=== PATIENT | female | born 1965 | race Caucasian/White ===

== ENCOUNTER → 2017-01-14 | Outpatient (CLI) | payer OTHER ==
--- NOTE | 2017-01-14 11:25 | MM ---
Reason for exam: screening (asymptomatic). Last mammogram was performed 1 year and 1 month ago. History: Patient is postmenopausal. Family history of breast cancer in mother at age 50. Benign excisional biopsy of the left breast, 2010. Physical Findings: A clinical breast exam by your physician is recommended on an annual basis and results should be correlated with mammographic findings. MG Screening Mammo w CAD Bilateral CC and MLO view(s) were taken. Prior study comparison: December 15, 2015, bilateral MG screening mammo w CAD. November 02, 2014, bilateral MG diagnostic mammo w CAD YHAIR. There are scattered fibroglandular densities. There is no discrete abnormality. No significant changes when compared with prior studies. ASSESSMENT: Negative, BI-RAD 1 RECOMMENDATION: Routine screening mammogram of both breasts in 1 year.
== END | disposition home or self-care (01) ==
LOC: RADMAMWWP 07:17
PROVIDERS: ATTEND Family Medicine
DX: Z12.31 Encounter for screening mammogram for malignant neoplasm of breast (principal)

== ENCOUNTER → 2017-01-14 | Outpatient (CLI) | payer OTHER ==
[2017-01-14 08:23] LABS: Cholesterol 247 mg/dL (<200); HDL Cholesterol 38 mg/dL (40-60); Triglycerides 445 mg/dL (<150)
== END | disposition home or self-care (01) ==
LOC: LABWHC1 07:45
PROVIDERS: ATTEND Family Medicine
DX: E11.9 Type 2 diabetes mellitus without complications (principal); E78.2 Mixed hyperlipidemia; I10 Essential (primary) hypertension; Z51.81 Encounter for therapeutic drug level monitoring; Z79.899 Other long term (current) drug therapy
CPT/HCPCS: 36415; 80061

== ENCOUNTER → 2017-08-12 | Outpatient (CLI) | payer OTHER ==
[2017-08-12 09:39] LABS: Basophils # (A) 0.1 k/uL (0-0.2); Basophils % (A) 1 %; Eosinophils # (A) 0.4 k/uL (0-0.7); Eosinophils % (A) 3 %; HCT 39.9 % (34.0-46.0); HGB 11.8 gm/dL (11.4-16.0); Hypochromasia Marked; Lymphocytes # (A) 3.5 k/uL (1.0-4.8); Lymphocytes % (A) 29 %; MCH 19.8 pg (25.0-35.0); MCHC 29.7 g/dL (31.0-37.0); MCV 66.8 fL (80.0-100.0); Mean Platelet Volume 6.7; Microcytosis Marked; Monocytes # (A) 0.7 k/uL (0-1.0); Monocytes % (A) 6 %; Neutrophils # (A) 7.3 k/uL (1.3-7.7); Neutrophils % (A) 60 %; Platelet Count 270 k/uL (150-450); RBC 5.98 m/uL (3.80-5.40); RDW 15.4 % (11.5-15.5); WBC 12.2 k/uL (3.8-10.6)
[2017-08-12 09:45] LABS: ALT 17 U/L (9-52); AST 20 U/L (14-36); Alkaline Phosphatase 83 U/L (38-126); Anion Gap 12 mmol/L; Blood Urea Nitrogen 13 mg/dL (7-17); Calcium 9.6 mg/dL (8.4-10.2); Carbon Dioxide 30 mmol/L (22-30); Chloride 101 mmol/L (98-107); Cholesterol 233 mg/dL (<200); Glucose 92 mg/dL (74-99); HDL Cholesterol 37 mg/dL (40-60); LDL Cholesterol,Calculated 117 mg/dL (0-99); Potassium 4.3 mmol/L (3.5-5.1); Sodium 143 mmol/L (137-145); Total Bilirubin 0.3 mg/dL (0.2-1.3); Total Protein 7.1 g/dL (6.3-8.2); Triglycerides 393 mg/dL (<150)
[2017-08-12 19:03] LABS: Hemoglobin A1C 6.6 % (4.0-6.0)
== END | disposition home or self-care (01) ==
LOC: LABWHC1 08:48
PROVIDERS: ATTEND Family Medicine
DX: E11.9 Type 2 diabetes mellitus without complications (principal); E78.1 Pure hyperglyceridemia; Z51.81 Encounter for therapeutic drug level monitoring; Z79.899 Other long term (current) drug therapy
CPT/HCPCS: 36415; 80053; 80061; 82043; 82570; 83036; 85025

== ENCOUNTER 2017-11-12 17:04 | Emergency (ER) | payer OTHER ==
[2017-11-12 17:27] VITALS: BP 132/63; PULSE 97; RESP 18; TEMP 98
--- NOTE | 2017-11-12 18:08 | ED ---
Extremity Problem HPI - General Chief complaint: Extremity Problem,Nontraumatic Stated complaint: Right Swollen Foot Time Seen by Provider: 11/12/17 17:54 Source: patient, RN notes reviewed Mode of arrival: ambulatory Limitations: no limitations - History of Present Illness Initial comments: This is a 52-year-old female who presents to the emergency department with chief complaint of right foot swelling. Patient states that last night she developed swelling in her right foot and ankle. She denies any specific injury or trauma but does state that she has been moving into a new house which has been strenuous. She states that she is concerned for a blood clot because she has a history of a DVT in the right leg when she was 21 years old. Patient states that she elevated her foot and the swelling went down, however today she developed pain in the right lower extremity. She states that she has pain in the foot, ankle, calf and knee. She states that she is a current, every day smoker. Denies estrogen use. Denies recent surgeries or hospitalizations. Denies fever, chills, chest pain, shortness of breath, abdominal pain, nausea or vomiting, constipation or diarrhea, dysuria or hematuria, numbness or tingling, headache or vision changes. - Related Data Home Medications Medication Instructions Recorded Confirmed ALPRAZolam [Xanax] 1 mg PO Q8HR 01/12/15 11/12/17 Carisoprodol [Soma] 350 mg PO QID 01/12/15 11/12/17 Levothyroxine Sodium [Synthroid] 100 mcg PO DAILY 01/12/15 11/12/17 Morphine Sulfate ER [Ms Contin 60 mg PO Q12HR 01/12/15 11/12/17 60Mg] oxyCODONE-APAP 10-325MG [Percocet 1 tab PO Q6HR PRN 01/12/15 11/12/17 10-325] Aspirin EC [Ecotrin] 325 mg PO DAILY PRN 11/12/17 11/12/17 Meclizine [Antivert] 25 mg PO BID PRN 11/12/17 11/12/17 Omeprazole 20 mg PO BID 11/12/17 11/12/17 Zolpidem [Ambien] 10 mg PO HS PRN 11/12/17 11/12/17 Allergies Allergy/AdvReac Type Severity Reaction Status Date / Time gabapentin [From Neurontin] Allergy Swelling Verified 11/12/17 18:16 Iodinated Contrast- Oral and Allergy Rash/Hives Verified 11/12/17 18:16 IV Dye [Iodinated Contrast Media - IV Dye] Penicillins Allergy Rash/Hives Verified 11/12/17 18:16 sulfamethoxazole Allergy Rash/Hives Verified 11/12/17 18:16 [From Bactrim] trimethoprim [From Bactrim] Allergy Rash/Hives Verified 11/12/17 18:16 Review of Systems ROS Statement: Those systems with pertinent positive or pertinent negative responses have been documented in the HPI. ROS Other: All systems not noted in ROS Statement are negative. Past Medical History Past Medical History: Diabetes Mellitus, Fibromyalgia Additional Past Medical History / Comment(s): glaucoma, TMJ, anemia, restless leg syndrome History of Any Multi-Drug Resistant Organisms: None Reported Past Surgical History: Section, Hernia Repair Additional Past Surgical History / Comment(s): peripheral iridotomy eye sx Past Psychological History: No Psychological Hx Reported Smoking Status: Current every day smoker Past Alcohol Use History: None Reported Past Drug Use History: None Reported General Exam - General Exam Comments Initial Comments: General: Awake and alert, well-developed; in no apparent distress. Sitting comfortably on ED stretcher. HEENT: Head atraumatic, normocephalic. Pupils are equal, round and reactive to light. Extraocular movements intact. Oropharynx moist without erythema or exudate. Neck: Supple. Normal ROM. Cardiovascular: Regular rate and rhythm. No murmurs, rubs or gallops. Chest symmetrical. Respiratory: Lungs clear to auscultation bilaterally. No wheezes, rales or rhonchi. Normal respiratory effort with no use of accessory muscles. Musculoskeletal: Normal range of motion of the right lower extremity. There is soft tissue swelling noted to the right foot and ankle. Tenderness along the fourth metatarsal. Tenderness on the lateral aspect of the ankle. Mild tenderness on palpation of the calf. Negative Homero's sign. Sensation is intact. Pedal pulses are 2+ equal and palpable bilaterally. Skin: Alix, warm and dry without rashes or lesions. No erythema. Neurological: Alert and oriented x3. CN II-XII grossly intact. Speech is fluent and answers are appropriate. No focal neuro deficits. Psychiatric: Normal mood and affect. No overt signs of depression or anxiety noted. Limitations: no limitations Course Vital Signs 11/12/17 17:25 Temperature 98.0 F Pulse Rate 97 Respiratory 18 Rate Blood Pressure 132/63 O2 Sat by Pulse 96 Oximetry Medical Decision Making - Medical Decision Making This is a 52-year-old female who presented to the emergency department for right lower extremity swelling and pain. Patient denies any specific injury or trauma, but states that she has been moving into a new house which has been strenuous work. She states she is concerned for a blood clot as she has had a DVT in the right lower extremity in the past. On physical examination, there is soft tissue swelling to the right foot and ankle. There is mild tenderness of the right calf and tenderness along the fifth metatarsal and lateral aspect of the ankle. X-rays of the right foot and ankle were negative for any acute abnormalities. Ultrasound venous Doppler revealed no evidence for an acute DVT. No signs of infection. Patient likely suffering from musculoskeletal strain. Findings were discussed with patient. Recommended rest, ice, elevation and ibuprofen as needed for pain and inflammation. Patient is in agreement with plan and voices understanding. She'll be discharged home at this time. All questions answered. - Radiology Data Radiology results: report reviewed X-ray right foot impression: Calcaneal spurring. No fracture seen. X-ray right ankle impression: Soft tissue swelling. No fracture. Ultrasound venous Doppler right lower extremity impression: Negative exam. No evidence of deep venous thrombosis in the right leg. Disposition Clinical Impression: Lower extremity edema Disposition: HOME SELF-CARE Condition: Good Instructions: Leg Edema (ED) Additional Instructions: Please rest, ice, elevate and take ibuprofen or Tylenol as needed. Please follow up with primary care provider within 1-2 days. Return to emergency department if symptoms should worsen or any concerns arise. Is patient prescribed a controlled substance at d/c from ED?: No Referrals: Lei Tony DO [Primary Care Provider] - 1-2 days Time of Disposition: 19:28
--- NOTE | 2017-11-12 18:45 | XR ---
EXAMINATION TYPE: XR foot complete RT DATE OF EXAM: 11/12/2017 COMPARISON: NONE HISTORY: Foot pain and swelling TECHNIQUE: 3 views FINDINGS: There is plantar calcaneal spur. The tarsals are intact. I see no fracture nor dislocation. There are no erosions. IMPRESSION: Calcaneal spurring. No fracture seen.
--- NOTE | 2017-11-12 18:46 | XR ---
EXAMINATION TYPE: XR ankle complete RT DATE OF EXAM: 11/12/2017 COMPARISON: NONE HISTORY: Ankle pain and swelling TECHNIQUE: 3 views FINDINGS: There is soft tissue swelling around the ankle joint. Ankle mortise is anatomic. I see no f racture nor dislocation. IMPRESSION: Soft tissue swelling. No fracture.
--- NOTE | 2017-11-12 19:11 | US ---
EXAMINATION TYPE: US venous doppler duplex LE RT DATE OF EXAM: 11/12/2017 7:00 PM COMPARISON: NONE CLINICAL HISTORY: Pain. Right foot pain x 2 days, history of right leg DVT 30 years ago SIDE PERFORMED: Right TECHNIQUE: The lower extremity deep venous system is examined utilizing real time linear array sonog santana with graded compression, doppler sonography and color-flow sonography. VESSELS IMAGED: External Iliac Vein (EIV) Common Femoral Vein Deep Femoral Vein Greater Saphenous Vein * Femoral Vein Popliteal Vein Small Saphenous Vein * Proximal Calf Veins (* superficial vessels) Right Leg: Appears negative for DVT IMPRESSION: Negative exam. No evidence of deep venous thrombosis in the right leg.
== END 2017-11-12 20:11 | disposition home or self-care (01) ==
LOC: EC 17:04
DX: R60.0 Localized edema (principal); M79.7 Fibromyalgia; G25.81 Restless legs syndrome; F17.200 Nicotine dependence, unspecified, uncomplicated; Z91.041 Radiographic dye allergy status; Z79.891 Long term (current) use of opiate analgesic; Z79.899 Other long term (current) drug therapy; Z88.0 Allergy status to penicillin; Z88.1 Allergy status to other antibiotic agents; Z88.2 Allergy status to sulfonamides; Z88.8 Allergy status to other drugs, medicaments and biological substances; Z86.718 Personal history of other venous thrombosis and embolism
CPT/HCPCS: 99284

== ENCOUNTER → 2018-01-21 | Outpatient (CLI) | payer OTHER ==
--- NOTE | 2018-01-23 07:56 | MM ---
Reason for exam: screening (asymptomatic). Last mammogram was performed 1 year ago. History: Patient is postmenopausal. Family history of breast cancer in mother at age 50. Benign excisional biopsy of the left breast, 2010. Physical Findings: A clinical breast exam by your physician is recommended on an annual basis and results should be correlated with mammographic findings. MG Screening Mammo w CAD Bilateral CC and MLO view(s) were taken. Prior study comparison: January 14, 2017, bilateral MG screening mammo w CAD. December 15, 2015, bilateral MG screening mammo w CAD. There are scattered fibroglandular densities. Previous mammotome biopsy in the left breast. No significant changes when compared with prior studies. ASSESSMENT: Benign, BI-RAD 2 RECOMMENDATION: Routine screening mammogram of both breasts in 1 year.
== END | disposition home or self-care (01) ==
LOC: RADMAMWWP 10:29
PROVIDERS: ATTEND Family Medicine
DX: Z12.31 Encounter for screening mammogram for malignant neoplasm of breast (principal)
CPT/HCPCS: 77067

== ENCOUNTER 2018-05-07 19:41 | Inpatient (IN) | payer BC, OTHER ==
[2018-05-07] MEDS ORDERED: SODIUM CHLORIDE 0.9% 1,000 ML IV STA ×2 (20:18→22:20)
[2018-05-07] MEDS ORDERED: MORPHINE SULFATE 2 MG/ML SYRINGE IVP STA (20:18)
[2018-05-07] MEDS ORDERED: methylPREDNISolone SOD SUCCI 125 MG/2 ML VIAL IV STA (20:20)
[2018-05-07] MEDS ORDERED: diphenhydrAMINE 50 MG/ML 1 ML VIAL IVP STA (20:20)
[2018-05-07] MEDS ORDERED: FAMOTIDINE 20 MG/2 ML VIAL IV STA (20:20)
[2018-05-07 20:48] LABS: Basophils % (A) 0 %; Eosinophils # (A) 0.2 k/uL (0-0.7); Eosinophils % (A) 1 %; HCT 31.4 % (34.0-46.0); HGB 10.1 gm/dL (11.4-16.0); Hypochromasia Slight; Lymphocytes # (A) 0.9 k/uL (1.0-4.8); Lymphocytes % (A) 5 %; MCHC 32.1 g/dL (31.0-37.0); MCV 62.4 fL (80.0-100.0); Mean Platelet Volume 7.2; Microcytosis Marked; Monocytes # (A) 1.2 k/uL (0-1.0); Monocytes % (A) 7 %; Neutrophils # (A) 15.2 k/uL (1.3-7.7); Neutrophils % (A) 86 %; Platelet Count 223 k/uL (150-450); RBC 5.03 m/uL (3.80-5.40); RDW 14.7 % (11.5-15.5); WBC 17.7 k/uL (3.8-10.6)
[2018-05-07 20:55] LABS: ALT 23 U/L (9-52); AST 23 U/L (14-36); Albumin 3.5 g/dL (3.5-5.0); Alkaline Phosphatase 156 U/L (38-126); Amylase 32 U/L (30-110); Anion Gap 8 mmol/L; Blood Urea Nitrogen 16 mg/dL (7-17); Calcium 8.9 mg/dL (8.4-10.2); Carbon Dioxide 30 mmol/L (22-30); Chloride 102 mmol/L (98-107); Glucose 118 mg/dL (74-99); Lipase 50 U/L (23-300); Sodium 140 mmol/L (137-145); Total Bilirubin 0.7 mg/dL (0.2-1.3); Total Protein 6.6 g/dL (6.3-8.2)
[2018-05-07 21:12] LABS: Appearance,Urine Cloudy (Clear); Bacteria,Urine Rare /hpf; Bilirubin,Urine Negative (Negative); Blood,Urine Moderate (Negative); Color,Urine Yellow; Glucose,Urine (UA) Negative (Negative); Ketones,Urine 1+ (Negative); Leukocyte Esterase,Urine Moderate (Negative); Mucus,Urine Few /hpf; Nitrite,Urine Negative (Negative); Protein,Urine 2+ (Negative); RBC,Urine 15 /hpf (0-5); Specific Gravity,Urine 1.019 (1.001-1.035); Squamous Epithelial Cell,Urine <1 /hpf (0-4)
--- NOTE | 2018-05-07 21:54 | CT ---
EXAMINATION TYPE: CT abdomen pelvis w con DATE OF EXAM: 05/07/2018 COMPARISON: None HISTORY: right sided abdominal pain CT DLP: 558.6 mGycm Automated exposure control for dose reduction was used. TECHNIQUE: Helical acquisition of images was performed from the lung bases through the pelvis. CONTRAST: Performed without Oral Contrast and with IV Contrast, patient injected with 100 mL of Isovue 300. FINDINGS: Lung bases are clear. There is no pleural effusion. Heart size is top normal. There is no pericardial effusion. There are small hiatal hernia. The remainder of the stomach appears normal. Liver shows no focal defect. There is no evidence of a splenic mass. There is no pancreatic mass. There is a dilated gallbladder with significant wall thickening. Gallbladder measures 5.5 cm. The wal l thickness is up to 10 mm. There is no ascites. There is minimal fluid and fat stranding in the right paracolic gutter. There is no adrenal mass. Kidneys show satisfactory contrast opacification. There is no hydronephrosi s. Ureters are not dilated. There is no retroperitoneal adenopathy. There is tiny amount of free flui d in the pelvis. There is no inguinal hernia. Appendix is not definitely seen. There is no sign of ap pendicitis. I see no evidence of a bowel obstruction. There is no intestinal wall thickening. There i s no mesenteric edema or adenopathy. The bony structures are intact. Uterus is anteverted. IMPRESSION: DILATED GALLBLADDER WITH MARKED WALL THICKENING. THERE IS SOME FLUID IN THE RIGHT UPPER QUADRANT. FIN DINGS ARE CONSISTENT WITH ACUTE CHOLECYSTITIS. NO DILATED DUCTS.
--- NOTE | 2018-05-07 22:02 | ED ---
General Adult HPI <Chris Longo - Last Filed: 05/07/18 23:11> - General Source: patient, RN notes reviewed, old records reviewed Mode of arrival: ambulatory Limitations: no limitations <Ash Escamilla - Last Filed: 05/07/18 23:55> - General Chief complaint: Abdominal Pain Stated complaint: Abd Pain - History of Present Illness Initial comments: 52-year-old female patient with a past medical history of diabetes mellitus presents to ED with right lower quadrant pain. Patient states that she has been experiencing right lower quadrant pain which radiates to her posterior axillary line for approximately 3 days. Patient describes the pain as a waxing and waning achy, intermittent stabs in the right lower quadrant which radiated to the posterior axillary line. Patient has additional complaints of fever/ chills, dysuria, nausea without emesis. Patient denies chest pain, heart palpitations, shortness of breath, pleuritic chest pain. Systemic: Pt denies fatigue, myalgia, rash. Pt denies weakness, night sweats, weight loss. Neuro: Pt denies headache, visual disturbances, syncope or pre-syncope. HEENT: Pt denies ocular discharge or irritation, otalgia, rhinorrhea, pharyngitis or notable lymphadenopathy. Cardiopulmonary: Pt denies chest pain, SOB, heart palpitations, dyspnea on exertion. : Pt denies new onset urinary or bowel incontinence. MSK: Pt denies myalgia, loss of strength or function in extremities. (Ash Escamilla) - Related Data Home Medications Medication Instructions Recorded Confirmed ALPRAZolam [Xanax] 1 mg PO QID PRN 01/12/15 05/07/18 Carisoprodol [Soma] 350 mg PO QID 01/12/15 05/07/18 Levothyroxine Sodium [Synthroid] 100 mcg PO DAILY 01/12/15 11/12/17 Morphine Sulfate ER [Ms Contin 60 mg PO Q12HR 01/12/15 05/07/18 60Mg] oxyCODONE-APAP 10-325MG [Percocet 1 tab PO Q4H PRN 01/12/15 05/07/18 10-325] Aspirin EC [Ecotrin] 325 mg PO DAILY PRN 11/12/17 05/07/18 Meclizine [Antivert] 25 mg PO BID PRN 11/12/17 05/07/18 Omeprazole 20 mg PO BID 11/12/17 11/12/17 Zolpidem [Ambien] 10 mg PO HS PRN 11/12/17 05/07/18 Carboxymethylcellulose Sodium 1 drop BOTH EYES DAILY PRN 05/07/18 05/07/18 [Refresh Tears] Allergies Allergy/AdvReac Type Severity Reaction Status Date / Time gabapentin [From Neurontin] Allergy Swelling Verified 05/07/18 20:44 Iodinated Contrast- Oral and Allergy Rash/Hives Verified 05/07/18 20:44 IV Dye [Iodinated Contrast Media - IV Dye] Penicillins Allergy Rash/Hives Verified 05/07/18 20:44 sulfamethoxazole Allergy Rash/Hives Verified 05/07/18 20:44 [From Bactrim] trimethoprim [From Bactrim] Allergy Rash/Hives Verified 05/07/18 20:44 Review of Systems ROS Other: All systems not noted in ROS Statement are negative. <Chris Longo - Last Filed: 05/07/18 23:11> ROS Other: All systems not noted in ROS Statement are negative. <Ash Escamilla - Last Filed: 05/07/18 23:55> ROS Statement: Those systems with pertinent positive or pertinent negative responses have been documented in the HPI. Past Medical History Past Medical History: Diabetes Mellitus, Fibromyalgia Additional Past Medical History / Comment(s): glaucoma, TMJ, anemia, restless leg syndrome History of Any Multi-Drug Resistant Organisms: None Reported Past Surgical History: Section, Hernia Repair Additional Past Surgical History / Comment(s): peripheral iridotomy eye sx Past Psychological History: No Psychological Hx Reported Smoking Status: Current every day smoker Past Alcohol Use History: None Reported Past Drug Use History: None Reported <Ash Escamilla - Last Filed: 05/07/18 23:55> General Exam <Chris Longo - Last Filed: 05/07/18 23:11> Limitations: no limitations <Ash Escamilla - Last Filed: 05/07/18 23:55> - General Exam Comments Initial Comments: Constitutional: NAD, AOX3. HEENT: NC/AT, trachea midline, neck supple, no lymphadenopathy. Posterior pharynx non erythematous, without exudates. External ears appear normal, without discharge. Mucous membranes moist. Eyes PERRLA, EOM intact. There is no scleral icterus. No pallor noted. Cardiopulmonary: RRR, no murmurs, rubs or gallops, no JVD noted. Lungs CTAB in anterior and posterior zaidi. No peripheral edema. Abdominal exam: Patient guarding. Abdomen diffusely tender in all quadrants. Patient has exquisite tenderness in right lower quadrant, right upper quadrant. Torres's sign positive. No ecchymoses. No Cullens or [place] Med[place] sign. Bowel sounds active in LLQ. No hepatosplenomegaly. Neuro: CN II-XII grossly intact. (Ash Escamilla) Course <Chris Longo - Last Filed: 05/07/18 23:11> <Ash Escamilla - Last Filed: 05/07/18 23:55> Vital Signs 05/07/18 05/07/18 05/07/18 19:54 22:01 23:12 Temperature 99.4 F 99.2 F 101.9 F H Pulse Rate 102 H 72 72 Respiratory 20 16 16 Rate Blood Pressure 117/73 111/73 112/55 O2 Sat by Pulse 94 L 95 93 L Oximetry - Reevaluation(s) Reevaluation #1: 05/07/18 23:11 Patient reevaluated by myself, Dr. Longo. Patient does have moderate tenderness right upper quadrant. Patient updated on results and plan. Case was discussed in detail with Dr. Davila, who will admit. He recommends antibiotics and keeping patient nothing by mouth. I did review and agree with PA findings. This includes all diagnostic interpretations and plan. (Chris Longo ) Medical Decision Making - Lab Data Result diagrams: 05/07/18 20:38 05/07/18 20:38 <Chris Longo - Last Filed: 05/07/18 23:11> - Lab Data Result diagrams: 05/07/18 20:38 05/07/18 20:38 - EKG Data -: EKG Interpreted by Me <Ash Escamilla - Last Filed: 05/07/18 23:55> - Medical Decision Making 52-year-old female patient with a past medical history of diabetes mellitus to ED with right lower quadrant pain. Patient states that she has been experiencing right lower quadrant pain which radiates to her posterior axillary line for approximately 3 days. Patient has additional complaints of fever/ chills, dysuria, nausea without emesis. Patient denies chest pain, heart palpitations, shortness of breath, pleuritic chest pain. Patient physical exam was suspicious for acute abdomen. Patient had guarding, diffuse tenderness to palpation in all quadrants, exquisite tenderness in the patient and right lower quadrant/right upper quadrant. Torres sign positive. No ecchymoses on abdomen. Patient had no cardiac complaints physical exam displayed regular rate and rhythm, no murmurs rubs or gallops. Laboratory exams were conducted including CBCwhich displayed leukocytosis of 17, Hb of 10.1. CMP which displayed mild hypokalemia, 3.0. CMP also displayed elevated alk phos 150. UA displayed 15 RBC and 12 WBC. LActic acid was negative. Blood cultures were obtained. Amylase/lipase were negative. EKG displayed normal sinus rhythm, some lateral T-wave inversions. Troponin ordered which was negative. Patient did not have any chest pain, heart palpitations. Imaging modalities of a CT abdomen and pelvis with contrast and a chest x-ray ordered. The chest x-ray did not display any acute process. The CT displayed cholecystitis. The patient was began on IV antibiotics, maintenance fluids. Patient previously received 1 L fluid bolus. Patient to be admitted to Dr. Feliz. Case discussed with Dr. Longo. Sepsis diagnosed at 11:20pm. (Ash Escamilla) - Lab Data Lab Results 05/07/18 05/07/18 05/07/18 Range/Units 20:38 20:38 20:38 WBC 17.7 H (3.8-10.6) k/uL RBC 5.03 (3.80-5.40) m/uL Hgb 10.1 L (11.4-16.0) gm/dL Hct 31.4 L (34.0-46.0) % MCV 62.4 L (80.0-100.0) fL MCH 20.0 L (25.0-35.0) pg MCHC 32.1 (31.0-37.0) g/dL RDW 14.7 (11.5-15.5) % Plt Count 223 (150-450) k/uL Neutrophils % 86 % Lymphocytes % 5 % Monocytes % 7 % Eosinophils % 1 % Basophils % 0 % Neutrophils # 15.2 H (1.3-7.7) k/uL Lymphocytes # 0.9 L (1.0-4.8) k/uL Monocytes # 1.2 H (0-1.0) k/uL Eosinophils # 0.2 (0-0.7) k/uL Basophils # 0.0 (0-0.2) k/uL Hypochromasia Slight Microcytosis Marked Sodium 140 (137-145) mmol/L Potassium 3.0 L (3.5-5.1) mmol/L Chloride 102 (98-107) mmol/L Carbon Dioxide 30 (22-30) mmol/L Anion Gap 8 mmol/L BUN 16 (7-17) mg/dL Creatinine 0.44 L (0.52-1.04) mg/dL Est GFR (CKD-EPI)AfAm >90 (>60 ml/min/1.73 sqM) Est GFR (CKD-EPI)NonAf >90 (>60 ml/min/1.73 sqM) Glucose 118 H (74-99) mg/dL Plasma Lactic Acid Adarsh 1.2 (0.7-2.0) mmol/L Calcium 8.9 (8.4-10.2) mg/dL Total Bilirubin 0.7 (0.2-1.3) mg/dL AST 23 (14-36) U/L ALT 23 (9-52) U/L Alkaline Phosphatase 156 H (38-126) U/L Troponin I (0.000-0.034) ng/mL Total Protein 6.6 (6.3-8.2) g/dL Albumin 3.5 (3.5-5.0) g/dL Amylase 32 (30-110) U/L Lipase 50 (23-300) U/L Urine Color Urine Appearance (Clear) Urine pH (5.0-8.0) Ur Specific [place] (1.001-1.035) Urine Protein (Negative) Urine Glucose (UA) (Negative) Urine Ketones (Negative) Urine Blood (Negative) Urine Nitrite (Negative) Urine Bilirubin (Negative) Urine Urobilinogen (<2.0) mg/dL Ur Leukocyte Esterase (Negative) Urine RBC (0-5) /hpf Urine WBC (0-5) /hpf Ur Squamous Epith Cells (0-4) /hpf Urine Bacteria (None) /hpf Urine Mucus (None) /hpf Urine HCG, Qual (Not Detectd) 05/07/18 05/07/18 05/07/18 Range/Units 20:55 20:55 21:30 WBC (3.8-10.6) k/uL RBC (3.80-5.40) m/uL Hgb (11.4-16.0) gm/dL Hct (34.0-46.0) % MCV (80.0-100.0) fL MCH (25.0-35.0) pg MCHC (31.0-37.0) g/dL RDW (11.5-15.5) % Plt Count (150-450) k/uL Neutrophils % % Lymphocytes % % Monocytes % % Eosinophils % % Basophils % % Neutrophils # (1.3-7.7) k/uL Lymphocytes # (1.0-4.8) k/uL Monocytes # (0-1.0) k/uL Eosinophils # (0-0.7) k/uL Basophils # (0-0.2) k/uL Hypochromasia Microcytosis Sodium (137-145) mmol/L Potassium (3.5-5.1) mmol/L Chloride (98-107) mmol/L Carbon Dioxide (22-30) mmol/L Anion Gap mmol/L BUN (7-17) mg/dL Creatinine (0.52-1.04) mg/dL Est GFR (CKD-EPI)AfAm (>60 ml/min/1.73 sqM) Est GFR (CKD-EPI)NonAf (>60 ml/min/1.73 sqM) Glucose (74-99) mg/dL Plasma Lactic Acid [place] (0.7-2.0) mmol/L Calcium (8.4-10.2) mg/dL Total Bilirubin (0.2-1.3) mg/dL AST (14-36) U/L ALT (9-52) U/L Alkaline Phosphatase (38-126) U/L Troponin I <0.012 (0.000-0.034) ng/mL Total Protein (6.3-8.2) g/dL Albumin (3.5-5.0) g/dL Amylase (30-110) U/L Lipase (23-300) U/L Urine Color Yellow Urine Appearance Cloudy H (Clear) Urine pH 6.0 (5.0-8.0) Ur Specific [place] 1.019 (1.001-1.035) Urine Protein 2+ H (Negative) Urine Glucose (UA) Negative (Negative) Urine Ketones 1+ H (Negative) Urine Blood Moderate H (Negative) Urine Nitrite Negative (Negative) Urine Bilirubin Negative (Negative) Urine Urobilinogen 4.0 (<2.0) mg/dL Ur Leukocyte Esterase Moderate H (Negative) Urine RBC 15 H (0-5) /hpf Urine WBC 12 H (0-5) /hpf Ur Squamous Epith Cells <1 (0-4) /hpf Urine Bacteria Rare H (None) /hpf Urine Mucus Few H (None) /hpf Urine HCG, Qual Not Detected (Not Detectd) - EKG Data EKG Comments: Normal sinus rhythm. Some inverted T waves in lateral leads. Ventricular rate 80 bpm, HI interval 134, QRS 90, QT/QTC 372/437. No old EKG for comparison. No complaint of chest pain, shortness of breath, troponin negative. (Ash Escamilla) Disposition <Chris Longo - Last Filed: 05/07/18 23:11> Decision Date: 05/07/18 <Ash Escamilla - Last Filed: 05/07/18 23:55> Clinical Impression: Cholecystitis, acute, Sepsis Disposition: ADMITTED IP TO THIS HOSP Condition: Good Referrals: Lei Tony DO [Primary Care Provider] - 1-2 days
[2018-05-07] MEDS ORDERED: NALOXONE 0.4 MG/ML 1 ML VIAL IV PRN (22:07)
--- NOTE | 2018-05-07 22:08 | XR ---
EXAMINATION TYPE: XR chest 2V DATE OF EXAM: 05/07/2018 COMPARISON: NONE HISTORY: Chest pain TECHNIQUE: Frontal and lateral views of the chest are obtained. FINDINGS: There is no heart failure nor confluent pneumonic infiltrate. Costophrenic angles are luz r. There are no hilar masses. Bony thorax is intact. IMPRESSION: No active cardiopulmonary disease. Normal heart.
[2018-05-07] MEDS ORDERED: LEVOFLOXACIN 750MG-D5W PMX 750 MG in DEXTROSE/WATER 1 150ML.BAG IVPB STA (23:21)
[2018-05-07] MEDS: ACETAMINOPHEN TAB 500 MG TAB PO PRN (23:49)
[2018-05-08] MEDS ORDERED: PIPERACILLIN-TAZOBACTAM 3.375 GM in SODIUM CHLORIDE 0.9% 100 ML IVPB SCH ×2
[2018-05-08] MEDS ORDERED: metroNIDAZOLE-NS PMX 500 MG in SALINE 1 100ML.BAG IVPB ONE
[2018-05-08] MEDS: MORPHINE SULFATE 2 MG/ML SYRINGE IVP PRN ×2 (04:31→10:34)
[2018-05-08] MEDS: metroNIDAZOLE-NS PMX 500 MG in SALINE 1 100ML.BAG IVPB SCH ×3 (07:53→23:35)
[2018-05-08] MEDS: PANTOPRAZOLE 40 MG/10 ML VIAL IVP SCH (12:00)
[2018-05-08] MEDS ORDERED: IV FLUID CONTINUATION 1,000 ML IV ONE (12:02)
--- NOTE | 2018-05-08 12:03 | P.GSHP ---
History of Present Illness H&P Date: 05/08/18 Chief Complaint: Right upper quadrant pain This is a 52-year-old female who was admitted through the emergency room with complaints of right quadrant pain. Patient's workup found evidence of cholelithiasis and cholecystitis. Past Medical History Past Medical History: Diabetes Mellitus, Fibromyalgia Additional Past Medical History / Comment(s): glaucoma, TMJ, anemia, restless leg syndrome History of Any Multi-Drug Resistant Organisms: None Reported Past Surgical History: Section, Hernia Repair Additional Past Surgical History / Comment(s): peripheral iridotomy eye sx, c section x2 Past Anesthesia/Blood Transfusion Reactions: No Reported Reaction Past Psychological History: No Psychological Hx Reported Smoking Status: Former smoker Past Alcohol Use History: None Reported Past Drug Use History: None Reported - Past Family History Mother Family Medical History: Cancer Additional Family Medical History / Comment(s): breast and uterine cancer recently Father Family Medical History: Myocardial Infarction ([place]) Additional Family Medical History / Comment(s): Heart problems Medications and Allergies Home Medications Medication Instructions Recorded Confirmed Type ALPRAZolam [Xanax] 1 mg PO QID PRN 01/12/15 05/07/18 History Carisoprodol [Soma] 350 mg PO QID 01/12/15 05/07/18 History Levothyroxine Sodium [Synthroid] 100 mcg PO DAILY 01/12/15 05/08/18 History Morphine Sulfate ER [Ms Contin 60 mg PO Q12HR 01/12/15 05/07/18 History 60Mg] oxyCODONE-APAP 10-325MG [Percocet 1 tab PO Q4H PRN 01/12/15 05/07/18 History 10-325] Aspirin EC [Ecotrin] 325 mg PO DAILY PRN 11/12/17 05/07/18 History Meclizine [Antivert] 25 mg PO BID PRN 11/12/17 05/07/18 History Omeprazole 20 mg PO BID 11/12/17 05/08/18 History Zolpidem [Ambien] 10 mg PO HS PRN 11/12/17 05/07/18 History Carboxymethylcellulose Sodium 1 drop BOTH EYES DAILY PRN 05/07/18 05/07/18 History [Refresh Tears] Allergies Allergy/AdvReac Type Severity Reaction Status Date / Time gabapentin [From Neurontin] Allergy Swelling Verified 05/08/18 00:33 Iodinated Contrast- Oral and Allergy Rash/Hives Verified 05/08/18 00:33 IV Dye [Iodinated Contrast Media - IV Dye] Penicillins Allergy Rash/Hives Verified 05/08/18 00:33 sulfamethoxazole Allergy Rash/Hives Verified 05/08/18 00:33 [From Bactrim] trimethoprim [From Bactrim] Allergy Rash/Hives Verified 05/08/18 00:33 walnut Allergy Anaphylaxis Verified 05/08/18 00:34 Surgical - Exam Vital Signs Temp Pulse Resp BP Pulse Ox 99.4 F 102 H 20 117/73 94 L 05/07/18 19:54 05/07/18 19:54 05/07/18 19:54 05/07/18 19:54 05/07/18 19:54 - General well developed, no distress - Eyes PERRL - ENT normal pinna - Neck no masses - Respiratory normal expansion - Cardiovascular Rhythm: regular - Abdomen Tender right upper quadrant Results - Labs 05/07/18 20:38 05/07/18 20:38 Abnormal Lab Results - Last 24 Hours (Table) 05/07/18 05/07/18 05/07/18 Range/Units 20:38 20:38 20:55 WBC 17.7 H (3.8-10.6) k/uL Hgb 10.1 L (11.4-16.0) gm/dL Hct 31.4 L (34.0-46.0) % MCV 62.4 L (80.0-100.0) fL MCH 20.0 L (25.0-35.0) pg Neutrophils # 15.2 H (1.3-7.7) k/uL Lymphocytes # 0.9 L (1.0-4.8) k/uL Monocytes # 1.2 H (0-1.0) k/uL Potassium 3.0 L (3.5-5.1) mmol/L Creatinine 0.44 L (0.52-1.04) mg/dL Glucose 118 H (74-99) mg/dL Alkaline Phosphatase 156 H (38-126) U/L Urine Appearance Cloudy H (Clear) Urine Protein 2+ H (Negative) Urine Ketones 1+ H (Negative) Urine Blood Moderate H (Negative) Ur Leukocyte Esterase Moderate H (Negative) Urine RBC 15 H (0-5) /hpf Urine WBC 12 H (0-5) /hpf Urine Bacteria Rare H (None) /hpf Urine Mucus Few H (None) /hpf Microbiology - Last 24 Hours (Table) 05/07/18 20:55 Urine Culture - Preliminary Urine,Voided Diabetes panel 05/07/18 Range/Units 20:38 Sodium 140 (137-145) mmol/L Potassium 3.0 L (3.5-5.1) mmol/L Chloride 102 (98-107) mmol/L Carbon Dioxide 30 (22-30) mmol/L BUN 16 (7-17) mg/dL Creatinine 0.44 L (0.52-1.04) mg/dL Glucose 118 H (74-99) mg/dL Calcium 8.9 (8.4-10.2) mg/dL AST 23 (14-36) U/L ALT 23 (9-52) U/L Alkaline Phosphatase 156 H (38-126) U/L Total Protein 6.6 (6.3-8.2) g/dL Albumin 3.5 (3.5-5.0) g/dL Calcium panel 05/07/18 Range/Units 20:38 Calcium 8.9 (8.4-10.2) mg/dL Albumin 3.5 (3.5-5.0) g/dL Pituitary panel 05/07/18 Range/Units 20:38 Sodium 140 (137-145) mmol/L Potassium 3.0 L (3.5-5.1) mmol/L Chloride 102 (98-107) mmol/L Carbon Dioxide 30 (22-30) mmol/L BUN 16 (7-17) mg/dL Creatinine 0.44 L (0.52-1.04) mg/dL Glucose 118 H (74-99) mg/dL Calcium 8.9 (8.4-10.2) mg/dL Adrenal panel 05/07/18 Range/Units 20:38 Sodium 140 (137-145) mmol/L Potassium 3.0 L (3.5-5.1) mmol/L Chloride 102 (98-107) mmol/L Carbon Dioxide 30 (22-30) mmol/L BUN 16 (7-17) mg/dL Creatinine 0.44 L (0.52-1.04) mg/dL Glucose 118 H (74-99) mg/dL Calcium 8.9 (8.4-10.2) mg/dL Total Bilirubin 0.7 (0.2-1.3) mg/dL AST 23 (14-36) U/L ALT 23 (9-52) U/L Alkaline Phosphatase 156 H (38-126) U/L Total Protein 6.6 (6.3-8.2) g/dL Albumin 3.5 (3.5-5.0) g/dL Assessment and Plan Assessment: Cholelithiasis Cholecystitis We'll perform laparoscopic cholecystectomy.
[2018-05-08] MEDS ORDERED: ONDANSETRON 4 MG/2 ML VIAL IVP ONE ×2 (12:11→13:44)
[2018-05-08] MEDS ORDERED: HEPARIN SODIUM,PORCINE 5,000 UNIT/ML 1 ML VIAL SQ ONE (12:12)
[2018-05-08] MEDS ORDERED: DEXAMETHASONE SOD PHOS (MDV) 100 MG/10 ML VIAL IVP ONE (12:12)
[2018-05-08] MEDS ORDERED: ceFAZolin IN SWFI 2 GM/20 ML SYRINGE IVP STA (12:14)
[2018-05-08] MEDS ORDERED: SCOPOLAMINE 1.5MG/72HR PATCH TRANSDERM ONE (12:24)
[2018-05-08] MEDS ORDERED: PROPOFOL 10 MG/ML 20 ML VIAL IV ONE (12:28)
[2018-05-08] MEDS ORDERED: HYDROmorphone (PF) 1 MG/ML ONE (12:28)
[2018-05-08] MEDS ORDERED: NEOSTIGMINE 1 MG/ML 10 ML VIAL ONE (12:28)
[2018-05-08] MEDS ORDERED: SUCCINYLCHOLINE CHLORIDE 100 MG/5 ML SYR IV ONE (12:28)
[2018-05-08] MEDS ORDERED: GLYCOPYRROLATE 0.2 MG/ML 2 ML VIAL ONE (12:28)
[2018-05-08] MEDS ORDERED: MIDAZOLAM 2 MG/2 ML VIAL ONE (12:28)
[2018-05-08] MEDS ORDERED: LIDOCAINE 1% INJ 10MG/ML (20 ML MDV) ONE (12:28)
[2018-05-08] MEDS ORDERED: ROCURONIUM BROMIDE 10 MG/ML 10 ML VIAL IV ONE (12:28)
[2018-05-08] MEDS ORDERED: fentaNYL (PF) 50 MCG/ML 2 ML AMP ONE (12:28)
[2018-05-08] MEDS ORDERED: SODIUM CHLORIDE 0.9% 50 ML with ceFAZolin 2,000 MG IV ONE ×2 (12:38)
[2018-05-08] MEDS ORDERED: BUPIVACAIN-EPI 0.25%-1:200,000 30 ML VIAL SQ ONE (12:47)
[2018-05-08] MEDS ORDERED: LACTATED RINGERS 1,000 ML IV ONE ×2 (12:51→13:40)
[2018-05-08] MEDS ORDERED: ONDANSETRON 4 MG/2 ML VIAL IVP PRN (13:40)
[2018-05-08] MEDS ORDERED: NALOXONE 0.4 MG/ML 1 ML VIAL IV PRN (13:40)
--- NOTE | 2018-05-08 13:40 | P.OP ---
Date of Procedure: 05/08/18 Preoperative Diagnosis: Cholecystitis Postoperative Diagnosis: Cholecystitis Procedure(s) Performed: Laparoscopic cholecystectomy Anesthesia: JEFF Surgeon: Emanuel Davila Estimated Blood Loss (ml): 20 Pathology: other (Gallbladder) Condition: stable Disposition: PACU Description of Procedure: The patient was placed on the operating table. The patient received a general endotracheal tube anesthesia. The patients abdomen was prepped and draped in the usual sterile fashion. Through an infraumbilical stab incision, the fascia of the anterior abdominal wall was grasped with a pair of Kochers and then the Veress needle was placed in the peritoneal cavity. Position of the Veress needle was confirmed with positive drop test. The abdomen was then insufflated. After adequate insufflation, the 10 mm trocar was placed in the peritoneal cavity. Following this the laparoscope was placed in the peritoneal cavity. The patient was placed in the head-up, right side up position and then a 5 mm trocar was placed in the right lateral and right subcostal position under direct visualization. A 8 mm trocar was placed in the epigastric position. The gallbladder was hydropic. The gallbladder is very inflamed. The gallbladder was aspirated. The gallbladder was grasped in the fundus and infundibulum. Traction on the gallbladder was placed in the lateral and the cephalad positions. The triangle of Calot was visualized.. The cystic duct was bluntly dissected until the union of the cystic duct and common bile duct was seen. The cystic duct was then divided and sealed with the Harmonic scissors. A PDS Endoloop was then placed throughout the cystic duct stump. The cystic artery divided and sealed with the Harmonic scissors. The gallbladder was then removed from the liver bed using Harmonic scissors. The gallbladder was then extracted through the epigastric port site. Operative field was checked for any bleeding spots and Harmonic scissors was used to coagulate the liver bed. The abdomen was irrigated. The trocars were removed. The skin was closed using interrupted 3-0 Vicryl suture. Dermabond dressing were applied. The patient tolerated the procedure well.
[2018-05-08] MEDS ORDERED: HYDROmorphone 1 MG/ML 1 ML SYRINGE IVP ONE ×2 (14:02→14:08)
[2018-05-08] MEDS ORDERED: fentaNYL (PF) 50 MCG/ML 2 ML AMP IVP ONE ×2 (14:11→14:20)
[2018-05-08] MEDS: HYDROmorphone 1 MG/ML 1 ML SYRINGE IVP ONE ×2 (14:31→14:39)
[2018-05-08] MEDS ORDERED: LORazepam 2 MG/ML INJ IV ONE (14:47)
[2018-05-08 16:58] LABS: Glucose,Whole Blood 184 mg/dL (75-99)
[2018-05-08] MEDS: HYDROcodone/APAP 5-325MG 1 EACH TAB PO PRN (17:15)
[2018-05-08] MEDS: DOCUSATE 100 MG CAP PO SCH (20:35)
[2018-05-08] MEDS: HYDROmorphone 1 MG/ML 1 ML SYRINGE IVP PRN ×2 (20:35→23:36)
[2018-05-08] MEDS: LEVOFLOXACIN 750MG-D5W PMX 750 MG in DEXTROSE/WATER 1 150ML.BAG IVPB SCH (20:37)
--- NOTE | 2018-05-09 00:01 | P.CONS ---
History of Present Illness - Reason for Consult Consult date: 05/08/18 Medical management of diabetes and other medical problems - Chief Complaint Abdominal pain - History of Present Illness Patient is a 52-year-old female with a known history of fibromyalgia, diet- controlled diabetes type 2, restless leg syndrome and other multiple medical problems came to ER with complaints of right lower quadrant pain.Patient states that she has been experiencing right lower quadrant pain which radiates to her posterior axillary line for approximately 3 days. Patient describes the pain as a waxing and waning achy, intermittent stabs in the right lower quadrant which radiated to the posterior axillary line. Patient has additional complaints of fever/chills, dysuria, nausea without emesis. Patient denies chest pain, heart palpitations, shortness of breath, pleuritic chest pain. Patient says that she's been getting workup for cardiac problems. Patient did have chemical stress test and is following cardiology for that. CT of the abdomen pelvis showed dilated gallbladder with marked wall thickening. There is some fluid in the right upper quadrant. Findings are consistent with acute cholecystitis. No dilated ducts. EKG showed normal sinus rhythm. Patient is currently status post laparoscopic cholecystectomy. Review of Systems Constitutional: Patient denies any fever or chills . No generalized weakness or weight loss. Abdomen: Patient does have nausea. Right lower quadrant abdominal pain. No diarrhea. Cardiovascular: Patient denies any chest pain or short of breath no palpitations. Respiratory: patient denied any cough is from production. No shortness of breath Neurologic: Patient denied any numbness or tingling headache. Musculoskeletal: Patient denies any complaints of joint swelling or deformity. Skin: Negative Psychiatric: Negative Endocrine: No heat or cold intolerance. No recent weight gain. Genitourinary: No dysuria or hematuria. All other 14 point ROS negative except the above Past Medical History Past Medical History: Diabetes Mellitus, Fibromyalgia Additional Past Medical History / Comment(s): glaucoma, TMJ, anemia, restless leg syndrome History of Any Multi-Drug Resistant Organisms: None Reported Past Surgical History: Section, Hernia Repair Additional Past Surgical History / Comment(s): peripheral iridotomy eye sx, c section x2 Past Anesthesia/Blood Transfusion Reactions: No Reported Reaction Past Psychological History: No Psychological Hx Reported Smoking Status: Former smoker Past Alcohol Use History: None Reported Past Drug Use History: None Reported - Past Family History Mother Family Medical History: Cancer Additional Family Medical History / Comment(s): breast and uterine cancer recently Father Family Medical History: Myocardial Infarction ([place]) Additional Family Medical History / Comment(s): Heart problems Medications and Allergies Home Medications Medication Instructions Recorded Confirmed Type ALPRAZolam [Xanax] 1 mg PO QID PRN 01/12/15 05/07/18 History Carisoprodol [Soma] 350 mg PO QID 01/12/15 05/07/18 History Levothyroxine Sodium [Synthroid] 100 mcg PO DAILY 01/12/15 05/08/18 History Morphine Sulfate ER [Ms Contin 60 mg PO Q12HR 01/12/15 05/07/18 History 60Mg] oxyCODONE-APAP 10-325MG [Percocet 1 tab PO Q4H PRN 01/12/15 05/07/18 History 10-325] Aspirin EC [Ecotrin] 325 mg PO DAILY PRN 11/12/17 05/07/18 History Meclizine [Antivert] 25 mg PO BID PRN 11/12/17 05/07/18 History Omeprazole 20 mg PO BID 11/12/17 05/08/18 History Zolpidem [Ambien] 10 mg PO HS PRN 11/12/17 05/07/18 History Carboxymethylcellulose Sodium 1 drop BOTH EYES DAILY PRN 05/07/18 05/07/18 History [Refresh Tears] HYDROcodone/APAP 7.5-325MG [[place] 1 tab PO Q4H PRN 3 Days #18 tab 05/08/18 Rx 7.5-325] Allergies Allergy/AdvReac Type Severity Reaction Status Date / Time gabapentin [From Neurontin] Allergy Swelling Verified 05/08/18 00:33 Iodinated Contrast- Oral and Allergy Rash/Hives Verified 05/08/18 00:33 IV Dye [Iodinated Contrast Media - IV Dye] Penicillins Allergy Rash/Hives Verified 05/08/18 00:33 sulfamethoxazole Allergy Rash/Hives Verified 05/08/18 00:33 [From Bactrim] trimethoprim [From Bactrim] Allergy Rash/Hives Verified 05/08/18 00:33 walnut Allergy Anaphylaxis Verified 05/08/18 00:34 Physical Exam Vitals: Vital Signs Temp Pulse Pulse Pulse Resp BP BP 05/08/18 14:55 100 16 127/64 05/08/18 14:40 101 H 16 129/62 05/08/18 14:25 96 16 140/6 05/08/18 14:10 98 18 143/64 05/08/18 13:55 99 16 149/68 05/08/18 13:41 97.5 F L 100 16 132/87 05/08/18 12:04 98.1 F 80 18 124/60 05/08/18 08:00 75 16 05/08/18 07:10 98.8 F 75 16 110/72 05/08/18 00:04 99.5 F 76 106/63 05/07/18 23:12 101.9 F H 72 16 112/55 05/07/18 22:01 99.2 F 72 16 111/73 05/07/18 19:54 99.4 F 102 H 20 117/73 Pulse Ox 05/08/18 14:55 95 05/08/18 14:40 97 05/08/18 14:25 97 05/08/18 14:10 99 05/08/18 13:55 96 05/08/18 13:41 94 L 05/08/18 12:04 94 L 05/08/18 08:00 05/08/18 07:10 97 05/08/18 00:04 93 L 05/07/18 23:12 93 L 05/07/18 22:01 95 05/07/18 19:54 94 L Intake and Output 05/08/18 05/08/18 05/08/18 06:59 14:59 22:59 Intake Total 375 1200 800 Output Total 15 Balance 375 1185 800 Intake: IV 1200 800 Intake, IV Titration 375 Amount Sodium Chloride 0.9% 1, 375 000 ml @ 75 mls/hr IV . [id number] STA Rx#:[id number] Output: Estimated Blood Loss 15 Other: Voiding Method Toilet # Voids 1 PHYSICAL EXAMINATION: Patient is lying in the bed comfortably, no acute distress, awake alert and oriented.. HEENT: Normocephalic. Neck is supple. Pupils reactive. Nostrils clear. Oral cavity is moist. Ears reveal no drainage. Neck reveals no JVD, carotid bruits, or thyromegaly. CHEST EXAMINATION: Trachea is central. Symmetrical expansion. Lung zaidi clear to auscultation and percussion. CARDIAC: Normal S1, S2 with no gallops. No murmurs ABDOMEN: Soft. Soreness at the surgical site. Bowel sounds sluggish. No organomegaly. No abdominal bruits. Extremities: reveal no edema. No clubbing or cyanosis Neurologically awake, alert, oriented x3 with well-coordinated movements. No focal deficits noted Skin: No rash or skin lesions. Psychiatric: Coperative. Nonsuicidal Musculoskeletal: No joint swelling or deformity. Normal range of motion. Results CBC & Chem 7: 05/07/18 20:38 05/07/18 20:38 Labs: Abnormal Lab Results - Last 24 Hours (Table) 05/07/18 05/07/18 05/07/18 Range/Units 20:38 20:38 20:55 WBC 17.7 H (3.8-10.6) k/uL Hgb 10.1 L (11.4-16.0) gm/dL Hct 31.4 L (34.0-46.0) % MCV 62.4 L (80.0-100.0) fL MCH 20.0 L (25.0-35.0) pg Neutrophils # 15.2 H (1.3-7.7) k/uL Lymphocytes # 0.9 L (1.0-4.8) k/uL Monocytes # 1.2 H (0-1.0) k/uL Potassium 3.0 L (3.5-5.1) mmol/L Creatinine 0.44 L (0.52-1.04) mg/dL Glucose 118 H (74-99) mg/dL Alkaline Phosphatase 156 H (38-126) U/L Urine Appearance Cloudy H (Clear) Urine Protein 2+ H (Negative) Urine Ketones 1+ H (Negative) Urine Blood Moderate H (Negative) Ur Leukocyte Esterase Moderate H (Negative) Urine RBC 15 H (0-5) /hpf Urine WBC 12 H (0-5) /hpf Urine Bacteria Rare H (None) /hpf Urine Mucus Few H (None) /hpf Microbiology - Last 24 Hours (Table) 05/07/18 20:55 Urine Culture - Preliminary Urine,Voided Assessment and Plan Assessment: Acute cholecystitis. Possible sepsis. Status post Laparoscopic cholecystectomy. Strep agalactiae urinary tract infection Microcytic anemia. Rule out iron deficiency. Hypokalemia Diabetes type 2. Diet controlled at home. Fibromyalgia Glaucoma Restless leg syndrome Previous history of smoking DVT prophylaxis Plan: Patient will be continued on IV fluids. Pain medications and bowel regimen. Continue with antibiotics in the form of Levaquin and Flagyl. Replace potassium. Encourage incentive spirometry and follow up closely. Insulin sliding scale. Further recommendations based on the clinical course. Thank you for your consult. Time with Patient: Greater than 30
[2018-05-09] MEDS: HYDROcodone/APAP 5-325MG 1 EACH TAB PO PRN ×3 (01:34→14:15)
[2018-05-09] MEDS: HYDROmorphone 1 MG/ML 1 ML SYRINGE IVP PRN ×4 (04:09→16:28)
[2018-05-09 04:30] LABS: Glucose,Whole Blood 153 mg/dL (75-99)
[2018-05-09 07:12] LABS: Glucose,Whole Blood 168 mg/dL (75-99)
[2018-05-09] MEDS: PANTOPRAZOLE 40 MG/10 ML VIAL IVP SCH (07:56)
[2018-05-09] MEDS: DOCUSATE 100 MG CAP PO SCH ×2 (07:58→20:30)
[2018-05-09] MEDS: ENOXAPARIN 40 MG/0.4 ML SYRINGE SQ SCH (07:58)
[2018-05-09] MEDS: INSULIN ASPART 100 UNIT/ML 1 ML 10 ML VIAL SQ SCH ×4 (08:01→20:21)
[2018-05-09] MEDS: metroNIDAZOLE-NS PMX 500 MG in SALINE 1 100ML.BAG IVPB SCH ×3 (08:04→23:07)
[2018-05-09 08:35] LABS: ALT 26 U/L (9-52); AST 20 U/L (14-36); Albumin 2.6 g/dL (3.5-5.0); Alkaline Phosphatase 122 U/L (38-126); Anion Gap 6 mmol/L; Blood Urea Nitrogen 8 mg/dL (7-17); Calcium 8.3 mg/dL (8.4-10.2); Carbon Dioxide 31 mmol/L (22-30); Chloride 103 mmol/L (98-107); Glucose 129 mg/dL (74-99); Sodium 140 mmol/L (137-145); Total Bilirubin 0.4 mg/dL (0.2-1.3); Total Protein 5.2 g/dL (6.3-8.2)
[2018-05-09 08:44] LABS: Basophils % (A) 0 %; Eosinophils % (A) 0 %; HGB 8.7 gm/dL (11.4-16.0); Hypochromasia Moderate; Lymphocytes # (A) 0.7 k/uL (1.0-4.8); Lymphocytes % (A) 6 %; MCH 19.7 pg (25.0-35.0); MCHC 31.2 g/dL (31.0-37.0); MCV 63.2 fL (80.0-100.0); Mean Platelet Volume 6.7; Microcytosis Marked; Monocytes # (A) 0.9 k/uL (0-1.0); Monocytes % (A) 7 %; Neutrophils # (A) 11.2 k/uL (1.3-7.7); Neutrophils % (A) 85 %; Platelet Count 302 k/uL (150-450); RBC 4.42 m/uL (3.80-5.40); RDW 14.4 % (11.5-15.5); WBC 13.1 k/uL (3.8-10.6)
[2018-05-09] MEDS ORDERED: Potassium Replacement Protocol 1 EACH MISC MISCELLANE PRN (11:18)
[2018-05-09 12:13] LABS: Glucose,Whole Blood 159 mg/dL (75-99)
[2018-05-09] MEDS: POTASSIUM CHLORIDE ER 20 MEQ TAB.ER PO SCH ×2 (12:24→13:37)
[2018-05-09 15:56] VITALS: BMI 22.6
[2018-05-09] MEDS ORDERED: MECLIZINE 25 MG TAB PO PRN (16:18)
[2018-05-09] MEDS ORDERED: ZOLPIDEM 10 MG TAB PO PRN (16:18)
[2018-05-09] MEDS ORDERED: ARTIFICIAL TEARS-HYPROMELLOSE DROPS 15 ML BTL BOTH EYES PRN (16:18)
--- NOTE | 2018-05-09 16:18 | P.PN ---
Subjective Progress Note Date: 05/09/18 CHIEF COMPLAINT: Status post cholecystectomy HISTORY OF PRESENT ILLNESS: The patient is a 51-year-old female who comes in with gangrenous cholecystitis. She is status post cholecystectomy postop day 1. She reports moderate soreness including along the epigastrium and right upper quadrant as well as abdominal gas bloat. She is passing flatus. She has difficulty getting out of bed. She reports nausea. Her pain is poorly controlled. PHYSICAL EXAM: GENERAL: Well-developed in mild distress. HEENT: No sclera icterus. Extraocular movements grossly intact. Moist buccal mucosa. Head is atraumatic, normocephalic. Hears conversational speech. No nasal drainage. NECK: Supple without lymphadenopathy. CHEST: Non-labored respirations and equal bilateral excursions. CARDIOVASCULAR: Regular rate with regular rhythm. ABDOMEN: Dressing clean dry and intact. No cellulitis. Mild abdominal distention. Tender epigastric right upper quadrant. MUSCULOSKELETAL: No clubbing, cyanosis or edema. NEUROLOGIC: No focal or lateralizing signs. Cranial nerves II through XII grossly intact. PSYCH: Alert and oriented to person, place and time. SKIN: Well perfused. Good skin turgor. LABS: Reviewed ASSESSMENT: 1. Gangrenous cholecystitis PLAN: 1. IV fluid hydration 2. Adjustment of pain meds 3. Restart home meds 4. Rule out for discharge tomorrow Objective - Vital Signs Vital signs: Vital Signs Temp 98.8 F 05/09/18 14:20 Pulse 77 05/09/18 14:20 Resp 22 05/09/18 14:20 BP 145/82 05/09/18 14:20 Pulse Ox 95 05/09/18 14:20 Intake & Output 05/08/18 05/09/18 05/09/18 18:59 06:59 18:59 Intake Total 1999 1300 Output Total 15 Balance 1984 1300 Weight 59.874 kg Intake: IV 1999 Intake, IV Titration 1300 Amount Lactated Ringers 1,000 ml 1300 @ 125 mls/hr IV .Q8H ONE Rx#:[id number] Output: Estimated Blood Loss 15 Other: Voiding Method Toilet Toilet # Voids 1 6 6 - Labs CBC & Chem 7: 05/09/18 06:35 05/09/18 06:35 Labs: Abnormal Lab Results - Last 24 Hours (Table) 05/08/18 05/09/18 05/09/18 Range/Units 16:56 04:29 06:35 WBC (3.8-10.6) k/uL Hgb (11.4-16.0) gm/dL Hct (34.0-46.0) % MCV (80.0-100.0) fL MCH (25.0-35.0) pg Neutrophils # (1.3-7.7) k/uL Lymphocytes # (1.0-4.8) k/uL Potassium 3.0 L (3.5-5.1) mmol/L Carbon Dioxide 31 H (22-30) mmol/L Creatinine 0.33 L (0.52-1.04) mg/dL Glucose 129 H (74-99) mg/dL POC Glucose (mg/dL) 184 H 153 H (75-99) mg/dL Calcium 8.3 L (8.4-10.2) mg/dL Total Protein 5.2 L (6.3-8.2) g/dL Albumin 2.6 L (3.5-5.0) g/dL 05/09/18 05/09/18 05/09/18 Range/Units 06:35 07:11 11:39 WBC 13.1 H (3.8-10.6) k/uL Hgb 8.7 L (11.4-16.0) gm/dL Hct 28.0 L (34.0-46.0) % MCV 63.2 L (80.0-100.0) fL MCH 19.7 L (25.0-35.0) pg Neutrophils # 11.2 H (1.3-7.7) k/uL Lymphocytes # 0.7 L (1.0-4.8) k/uL Potassium (3.5-5.1) mmol/L Carbon Dioxide (22-30) mmol/L Creatinine (0.52-1.04) mg/dL Glucose (74-99) mg/dL POC Glucose (mg/dL) 168 H 159 H (75-99) mg/dL Calcium (8.4-10.2) mg/dL Total Protein (6.3-8.2) g/dL Albumin (3.5-5.0) g/dL Microbiology - Last 24 Hours (Table) 05/07/18 20:30 Blood Culture - Preliminary Blood No Growth after 24 hours 05/07/18 20:55 Urine Culture - Final Urine,Voided Strep agalactiae - (group b) Assessment and Plan (1) Acute gangrenous cholecystitis Current Visit: Yes Status: Acute Code(s): K81.0 - ACUTE CHOLECYSTITIS SNOMED Code(s): 86696955 (2) Postoperative pain Current Visit: Yes Status: Acute Code(s): G89.18 - OTHER ACUTE POSTPROCEDURAL PAIN SNOMED Code(s): 653125696 (3) Sepsis Current Visit: Yes Status: Acute Code(s): A41.9 - SEPSIS, UNSPECIFIED ORGANISM SNOMED Code(s): 67514766
[2018-05-09] MEDS: LEVOTHYROXINE 100 MCG TAB PO SCH (16:40)
[2018-05-09 17:27] LABS: Glucose,Whole Blood 133 mg/dL (75-99)
[2018-05-09 17:36] LABS: Iron Saturation 4.62 (12.00-45.00)
[2018-05-09 17:50] LABS: Hemoglobin A1C 6.4 % (4.0-6.0)
[2018-05-09] MEDS: PANTOPRAZOLE 40 MG TABLET PO SCH (18:41)
[2018-05-09] MEDS: 0.9% NACL WITH KCL 40 MEQ/L 1,000 ML IV SCH (18:41)
[2018-05-09] MEDS: CARISOPRODOL 350 MG TAB PO SCH (19:08)
[2018-05-09 20:02] LABS: Glucose,Whole Blood 158 mg/dL (75-99)
[2018-05-09] MEDS: LEVOFLOXACIN 750MG-D5W PMX 750 MG in DEXTROSE/WATER 1 150ML.BAG IVPB SCH (20:30)
[2018-05-09] MEDS: oxyCODONE-APAP 10-325MG 1 EACH TAB PO PRN (20:30)
[2018-05-09] MEDS: MORPHINE SULFATE ER 60 MG TABLET PO SCH (23:06)
[2018-05-10] MEDS: CARISOPRODOL 350 MG TAB PO SCH ×5 (03:40→22:33)
[2018-05-10] MEDS: oxyCODONE-APAP 10-325MG 1 EACH TAB PO PRN ×4 (03:54→22:37)
[2018-05-10] MEDS: LEVOTHYROXINE 100 MCG TAB PO SCH (07:19)
[2018-05-10 07:26] LABS: Glucose,Whole Blood 131 mg/dL (75-99)
[2018-05-10 07:50] LABS: Basophils % (A) 0 %; Eosinophils % (A) 0 %; HGB 8.2 gm/dL (11.4-16.0); Hypochromasia Slight; Lymphocytes # (A) 0.7 k/uL (1.0-4.8); Lymphocytes % (A) 7 %; MCH 19.7 pg (25.0-35.0); MCHC 31.4 g/dL (31.0-37.0); MCV 62.8 fL (80.0-100.0); Mean Platelet Volume 6.7; Microcytosis Marked; Monocytes # (A) 0.9 k/uL (0-1.0); Monocytes % (A) 8 %; Neutrophils # (A) 9.1 k/uL (1.3-7.7); Neutrophils % (A) 84 %; Platelet Count 280 k/uL (150-450); RBC 4.15 m/uL (3.80-5.40); RDW 14.6 % (11.5-15.5); WBC 10.8 k/uL (3.8-10.6)
[2018-05-10 08:03] LABS: ALT 27 U/L (9-52); AST 18 U/L (14-36); Albumin 2.4 g/dL (3.5-5.0); Alkaline Phosphatase 98 U/L (38-126); Anion Gap 5 mmol/L; Blood Urea Nitrogen 6 mg/dL (7-17); Calcium 7.8 mg/dL (8.4-10.2); Carbon Dioxide 33 mmol/L (22-30); Chloride 102 mmol/L (98-107); Glucose 109 mg/dL (74-99); Magnesium 1.4 mg/dL (1.6-2.3); Sodium 140 mmol/L (137-145); Total Bilirubin 0.4 mg/dL (0.2-1.3); Total Protein 4.8 g/dL (6.3-8.2)
[2018-05-10] MEDS: INSULIN ASPART 100 UNIT/ML 1 ML 10 ML VIAL SQ SCH ×4 (08:30→22:17)
[2018-05-10] MEDS: metroNIDAZOLE-NS PMX 500 MG in SALINE 1 100ML.BAG IVPB SCH ×3 (08:36→22:34)
[2018-05-10] MEDS: ENOXAPARIN 40 MG/0.4 ML SYRINGE SQ SCH (08:40)
[2018-05-10] MEDS: DOCUSATE 100 MG CAP PO SCH ×2 (08:40→20:55)
[2018-05-10] MEDS: MORPHINE SULFATE ER 60 MG TABLET PO SCH ×2 (08:40→20:56)
[2018-05-10] MEDS: PANTOPRAZOLE 40 MG TABLET PO SCH ×2 (09:13→17:59)
[2018-05-10] MEDS ORDERED: POTASSIUM CHLORIDE ER 20 MEQ TAB.ER PO STA ×2 (10:21→11:12)
[2018-05-10] MEDS: 0.9% NACL WITH KCL 40 MEQ/L 1,000 ML IV SCH ×2 (11:24→19:45)
[2018-05-10] MEDS: MAGNESIUM SULFATE-D5W PMX 1 GM in DEXTROSE/WATER 1 100ML.BAG IVPB SCH ×2 (11:26→13:08)
[2018-05-10 12:13] LABS: Glucose,Whole Blood 166 mg/dL (75-99)
--- NOTE | 2018-05-10 13:48 | P.PN ---
Subjective Progress Note Date: 05/10/18 CHIEF COMPLAINT: Status post cholecystectomy HISTORY OF PRESENT ILLNESS: The patient is a 52-year-old female who comes in with gangrenous cholecystitis. She is status post cholecystectomy postop day 2. Yesterday she had moderate abdominal pain including generalized nausea. She is a chronic pain patient. She was placed back on her home medications. She does feel better today. She continues to have low O2 sats pre-existing. Her incentive spirometer use is only 500 mL with goal of 1500 mL. PHYSICAL EXAM: GENERAL: Well-developed in mild distress. HEENT: No sclera icterus. Extraocular movements grossly intact. Moist buccal mucosa. Head is atraumatic, normocephalic. Hears conversational speech. No nasal drainage. NECK: Supple without lymphadenopathy. CHEST: Non-labored respirations and equal bilateral excursions. CARDIOVASCULAR: Regular rate with regular rhythm. ABDOMEN: Dressing clean dry and intact. No cellulitis. Mild abdominal distention. Nontender. MUSCULOSKELETAL: No clubbing, cyanosis or edema. NEUROLOGIC: No focal or lateralizing signs. Cranial nerves II through XII grossly intact. PSYCH: Alert and oriented to person, place and time. SKIN: Well perfused. Good skin turgor. LABS: Reviewed ASSESSMENT: 1. Gangrenous cholecystitis 2. Chronic pain syndrome PLAN: 1. Continue incentive spirometry use for likely atelectasis 2. Continue IV antibiotics for persistent leukocytosis 3. May benefit from updrafts however management per medicine. Objective - Vital Signs Vital signs: Vital Signs Temp 99.6 F 05/10/18 08:47 Pulse 86 05/10/18 08:47 Resp 22 05/10/18 08:47 BP 127/61 05/10/18 08:47 Pulse Ox 95 05/10/18 08:47 Intake & Output 05/09/18 05/10/18 05/10/18 18:59 06:59 18:59 Weight 59.874 kg Other: Voiding Method Toilet # Voids 6 1 - Labs CBC & Chem 7: 05/10/18 06:37 05/10/18 06:37 Labs: Abnormal Lab Results - Last 24 Hours (Table) 05/09/18 05/09/18 05/09/18 Range/Units 06:35 06:35 17:11 WBC (3.8-10.6) k/uL Hgb (11.4-16.0) gm/dL Hct (34.0-46.0) % MCV (80.0-100.0) fL MCH (25.0-35.0) pg Neutrophils # (1.3-7.7) k/uL Lymphocytes # (1.0-4.8) k/uL Potassium (3.5-5.1) mmol/L Carbon Dioxide (22-30) mmol/L BUN (7-17) mg/dL Creatinine (0.52-1.04) mg/dL Glucose (74-99) mg/dL POC Glucose (mg/dL) 133 H (75-99) mg/dL Hemoglobin A1c 6.4 H (4.0-6.0) % Calcium (8.4-10.2) mg/dL Magnesium (1.6-2.3) mg/dL Iron 11 L (50-170) ug/dL Iron Saturation 4.62 L (12.00-45.00) Total Protein (6.3-8.2) g/dL Albumin (3.5-5.0) g/dL 05/09/18 05/10/18 05/10/18 Range/Units 19:50 06:37 06:37 WBC 10.8 H (3.8-10.6) k/uL Hgb 8.2 L (11.4-16.0) gm/dL Hct 26.0 L (34.0-46.0) % MCV 62.8 L (80.0-100.0) fL MCH 19.7 L (25.0-35.0) pg Neutrophils # 9.1 H (1.3-7.7) k/uL Lymphocytes # 0.7 L (1.0-4.8) k/uL Potassium 3.0 L (3.5-5.1) mmol/L Carbon Dioxide 33 H (22-30) mmol/L BUN 6 L (7-17) mg/dL Creatinine 0.32 L (0.52-1.04) mg/dL Glucose 109 H (74-99) mg/dL POC Glucose (mg/dL) 158 H (75-99) mg/dL Hemoglobin A1c (4.0-6.0) % Calcium 7.8 L (8.4-10.2) mg/dL Magnesium 1.4 L (1.6-2.3) mg/dL Iron (50-170) ug/dL Iron Saturation (12.00-45.00) Total Protein 4.8 L (6.3-8.2) g/dL Albumin 2.4 L (3.5-5.0) g/dL 05/10/18 05/10/18 Range/Units 07:13 11:45 WBC (3.8-10.6) k/uL Hgb (11.4-16.0) gm/dL Hct (34.0-46.0) % MCV (80.0-100.0) fL MCH (25.0-35.0) pg Neutrophils # (1.3-7.7) k/uL Lymphocytes # (1.0-4.8) k/uL Potassium (3.5-5.1) mmol/L Carbon Dioxide (22-30) mmol/L BUN (7-17) mg/dL Creatinine (0.52-1.04) mg/dL Glucose (74-99) mg/dL POC Glucose (mg/dL) 131 H 166 H (75-99) mg/dL Hemoglobin A1c (4.0-6.0) % Calcium (8.4-10.2) mg/dL Magnesium (1.6-2.3) mg/dL Iron (50-170) ug/dL Iron Saturation (12.00-45.00) Total Protein (6.3-8.2) g/dL Albumin (3.5-5.0) g/dL Microbiology - Last 24 Hours (Table) 05/07/18 20:30 Blood Culture - Preliminary Blood No Growth after 48 hours Assessment and Plan (1) Acute gangrenous cholecystitis Current Visit: Yes Status: Acute Code(s): K81.0 - ACUTE CHOLECYSTITIS SNOMED Code(s): 32250454 (2) Postoperative pain Current Visit: Yes Status: Acute Code(s): G89.18 - OTHER ACUTE POSTPROCEDURAL PAIN SNOMED Code(s): 903229814 (3) Sepsis Current Visit: Yes Status: Acute Code(s): A41.9 - SEPSIS, UNSPECIFIED ORGANISM SNOMED Code(s): 09444830
[2018-05-10 14:30] LABS: Glucose,Whole Blood 172 mg/dL (75-99)
--- NOTE | 2018-05-10 14:55 | XR ---
EXAMINATION TYPE: XR chest 2V DATE OF EXAM: 05/10/2018 COMPARISON: None INDICATION: Short of breath smoking history TECHNIQUE: Frontal and lateral views of the chest are obtained. FINDINGS: The heart size is normal. The pulmonary vasculature is upper limits of normal. Some subtle increased lung markings may be prese nt. Pulmonary edema should be considered. Consider follow-up exam Posterior costophrenic angle blunting is present. Minimal posterior pleural effusions may be present. . IMPRESSION: 1. Early volume overload or pulmonary edema should be considered. Follow-up chest x-rays are recommen ded. 2. Small posterior pleural effusions
[2018-05-10] MEDS: ALPRAZolam 1 MG TAB PO PRN (15:46)
[2018-05-10] MEDS ORDERED: FUROSEMIDE 10 MG/ML 4 ML VIAL IV STA (16:25)
[2018-05-10] MEDS ORDERED: FUROSEMIDE 10 MG/ML 2 ML VIAL IV STA (16:25)
[2018-05-10 17:47] LABS: Glucose,Whole Blood 105 mg/dL (75-99)
[2018-05-10 20:31] LABS: Glucose,Whole Blood 130 mg/dL (75-99)
[2018-05-10] MEDS: LEVOFLOXACIN 750MG-D5W PMX 750 MG in DEXTROSE/WATER 1 150ML.BAG IVPB SCH (20:56)
--- NOTE | 2018-05-11 00:06 | P.PN ---
Subjective Progress Note Date: 05/09/18 Principal diagnosis: Acute gangrenous cholecystitis Patient is a 52-year-old female with a known history of fibromyalgia, diet- controlled diabetes type 2, restless leg syndrome and other multiple medical problems came to ER with complaints of right lower quadrant pain.Patient states that she has been experiencing right lower quadrant pain which radiates to her posterior axillary line for approximately 3 days. Patient describes the pain as a waxing and waning achy, intermittent stabs in the right lower quadrant which radiated to the posterior axillary line. Patient has additional complaints of fever/chills, dysuria, nausea without emesis. Patient denies chest pain, heart palpitations, shortness of breath, pleuritic chest pain. Patient says that she's been getting workup for cardiac problems. Patient did have chemical stress test and is following cardiology for that. CT of the abdomen pelvis showed dilated gallbladder with marked wall thickening. There is some fluid in the right upper quadrant. Findings are consistent with acute cholecystitis. No dilated ducts. EKG showed normal sinus rhythm. Patient is currently status post laparoscopic cholecystectomy. 05/09/2018 Patient is still complaining of abdominal soreness. No fever no chills. Started on Oral diet. Potassium is being replaced. No complains of chest pain or shortness of breath. Patient does have nausea. No episodes of vomiting. Current medications reviewed. Objective - Vital Signs Vital signs: Vital Signs Temp 98.8 F 05/09/18 14:20 Pulse 77 05/09/18 14:20 Resp 22 05/09/18 14:20 BP 145/82 05/09/18 14:20 Pulse Ox 95 05/09/18 14:20 Intake & Output 05/08/18 05/09/18 05/09/18 18:59 06:59 18:59 Intake Total 1999 1300 Output Total 15 Balance 1984 1300 Weight 59.874 kg Intake: IV 1999 Intake, IV Titration 1300 Amount Lactated Ringers 1,000 ml 1300 @ 125 mls/hr IV .Q8H ONE Rx#:[id number] Output: Estimated Blood Loss 15 Other: Voiding Method Toilet Toilet # Voids 1 6 6 - Exam PHYSICAL EXAMINATION: Patient is lying in the bed comfortably, no acute distress, awake alert and oriented.. HEENT: Normocephalic. Neck is supple. Pupils reactive. Nostrils clear. Oral cavity is moist. Ears reveal no drainage. Neck reveals no JVD, carotid bruits, or thyromegaly. CHEST EXAMINATION: Trachea is central. Symmetrical expansion. Lung zaidi clear to auscultation and percussion. CARDIAC: Normal S1, S2 with no gallops. No murmurs ABDOMEN: Soft. Soreness at the surgical site. Bowel sounds sluggish. No organomegaly. No abdominal bruits. Extremities: reveal no edema. No clubbing or cyanosis Neurologically awake, alert, oriented x3 with well-coordinated movements. No focal deficits noted Skin: No rash or skin lesions. Psychiatric: Coperative. Nonsuicidal Musculoskeletal: No joint swelling or deformity. Normal range of motion. - Labs CBC & Chem 7: 05/10/18 06:37 05/10/18 06:37 Labs: Abnormal Lab Results - Last 24 Hours (Table) 05/09/18 05/09/18 05/09/18 Range/Units 04:29 06:35 06:35 WBC 13.1 H (3.8-10.6) k/uL Hgb 8.7 L (11.4-16.0) gm/dL Hct 28.0 L (34.0-46.0) % MCV 63.2 L (80.0-100.0) fL MCH 19.7 L (25.0-35.0) pg Neutrophils # 11.2 H (1.3-7.7) k/uL Lymphocytes # 0.7 L (1.0-4.8) k/uL Potassium 3.0 L (3.5-5.1) mmol/L Carbon Dioxide 31 H (22-30) mmol/L Creatinine 0.33 L (0.52-1.04) mg/dL Glucose 129 H (74-99) mg/dL POC Glucose (mg/dL) 153 H (75-99) mg/dL Hemoglobin A1c (4.0-6.0) % Calcium 8.3 L (8.4-10.2) mg/dL Iron (50-170) ug/dL Iron Saturation (12.00-45.00) Total Protein 5.2 L (6.3-8.2) g/dL Albumin 2.6 L (3.5-5.0) g/dL 05/09/18 05/09/18 05/09/18 Range/Units 06:35 06:35 07:11 WBC (3.8-10.6) k/uL Hgb (11.4-16.0) gm/dL Hct (34.0-46.0) % MCV (80.0-100.0) fL MCH (25.0-35.0) pg Neutrophils # (1.3-7.7) k/uL Lymphocytes # (1.0-4.8) k/uL Potassium (3.5-5.1) mmol/L Carbon Dioxide (22-30) mmol/L Creatinine (0.52-1.04) mg/dL Glucose (74-99) mg/dL POC Glucose (mg/dL) 168 H (75-99) mg/dL Hemoglobin A1c 6.4 H (4.0-6.0) % Calcium (8.4-10.2) mg/dL Iron 11 L (50-170) ug/dL Iron Saturation 4.62 L (12.00-45.00) Total Protein (6.3-8.2) g/dL Albumin (3.5-5.0) g/dL 05/09/18 05/09/18 Range/Units 11:39 17:11 WBC (3.8-10.6) k/uL Hgb (11.4-16.0) gm/dL Hct (34.0-46.0) % MCV (80.0-100.0) fL MCH (25.0-35.0) pg Neutrophils # (1.3-7.7) k/uL Lymphocytes # (1.0-4.8) k/uL Potassium (3.5-5.1) mmol/L Carbon Dioxide (22-30) mmol/L Creatinine (0.52-1.04) mg/dL Glucose (74-99) mg/dL POC Glucose (mg/dL) 159 H 133 H (75-99) mg/dL Hemoglobin A1c (4.0-6.0) % Calcium (8.4-10.2) mg/dL Iron (50-170) ug/dL Iron Saturation (12.00-45.00) Total Protein (6.3-8.2) g/dL Albumin (3.5-5.0) g/dL Microbiology - Last 24 Hours (Table) 05/07/18 20:30 Blood Culture - Preliminary Blood No Growth after 24 hours 05/07/18 20:55 Urine Culture - Final Urine,Voided Strep agalactiae - (group b) Assessment and Plan Assessment: Acute cholecystitis. Possible sepsis. Status post Laparoscopic cholecystectomy. Strep agalactiae urinary tract infection Microcytic anemia. Rule out iron deficiency. Hypokalemia Diabetes type 2. Diet controlled at home. Fibromyalgia Glaucoma Restless leg syndrome Previous history of smoking DVT prophylaxis Plan: Patient will be continued on IV fluids. Pain medications and bowel regimen. Continue with antibiotics in the form of Levaquin and Flagyl. Replace potassium. Encourage incentive spirometry and follow up closely. Insulin sliding scale. Further recommendations based on the clinical course. Thank you for your consult.
--- NOTE | 2018-05-11 00:08 | P.PN ---
Subjective Progress Note Date: 05/10/18 Principal diagnosis: Acute gangrenous cholecystitis Patient is a 52-year-old female with a known history of fibromyalgia, diet- controlled diabetes type 2, restless leg syndrome and other multiple medical problems came to ER with complaints of right lower quadrant pain.Patient states that she has been experiencing right lower quadrant pain which radiates to her posterior axillary line for approximately 3 days. Patient describes the pain as a waxing and waning achy, intermittent stabs in the right lower quadrant which radiated to the posterior axillary line. Patient has additional complaints of fever/chills, dysuria, nausea without emesis. Patient denies chest pain, heart palpitations, shortness of breath, pleuritic chest pain. Patient says that she's been getting workup for cardiac problems. Patient did have chemical stress test and is following cardiology for that. CT of the abdomen pelvis showed dilated gallbladder with marked wall thickening. There is some fluid in the right upper quadrant. Findings are consistent with acute cholecystitis. No dilated ducts. EKG showed normal sinus rhythm. Patient is currently status post laparoscopic cholecystectomy. 05/09/2018 Patient is still complaining of abdominal soreness. No fever no chills. Started on Oral diet. Potassium is being replaced. No complains of chest pain or shortness of breath. Patient does have nausea. No episodes of vomiting. 05/10/2018 Patient says that her pain is better today. No fever no chills. Otherwise patient is short stating that 90% on room air. Chest x-ray showed bilateral small pleural effusion. Patient was given IV Lasix and fluids will be held at this time and reassess tomorrow. Potassium will be replaced per protocol. Patient was encouraged with oral diet. No chest pain. Patient does have some short of breath. No headache or dizziness or lightheadedness. Current medications reviewed. Objective - Vital Signs Vital signs: Vital Signs Temp 98.9 F 05/10/18 15:00 Pulse 88 05/10/18 15:00 Resp 20 05/10/18 15:00 BP 126/61 05/10/18 15:00 Pulse Ox 95 05/10/18 15:00 Intake & Output 05/09/18 05/10/18 05/10/18 18:59 06:59 18:59 Weight 59.874 kg Other: Voiding Method Toilet # Voids 6 1 2 - Exam PHYSICAL EXAMINATION: Patient is lying in the bed comfortably, no acute distress, awake alert and oriented.. HEENT: Normocephalic. Neck is supple. Pupils reactive. Nostrils clear. Oral cavity is moist. Ears reveal no drainage. Neck reveals no JVD, carotid bruits, or thyromegaly. CHEST EXAMINATION: Trachea is central. Symmetrical expansion. Minimal left basilar crackles. No wheezing. Nonlabored breathing.. CARDIAC: Normal S1, S2 with no gallops. No murmurs ABDOMEN: Soft. Soreness at the surgical site. Bowel sounds sluggish. No organomegaly. No abdominal bruits. Extremities: reveal no edema. No clubbing or cyanosis Neurologically awake, alert, oriented x3 with well-coordinated movements. No focal deficits noted Skin: No rash or skin lesions. Psychiatric: Coperative. Nonsuicidal Musculoskeletal: No joint swelling or deformity. Normal range of motion. - Labs CBC & Chem 7: 05/10/18 06:37 05/10/18 06:37 Labs: Abnormal Lab Results - Last 24 Hours (Table) 05/09/18 05/09/18 05/09/18 Range/Units 06:35 06:35 17:11 WBC (3.8-10.6) k/uL Hgb (11.4-16.0) gm/dL Hct (34.0-46.0) % MCV (80.0-100.0) fL MCH (25.0-35.0) pg Neutrophils # (1.3-7.7) k/uL Lymphocytes # (1.0-4.8) k/uL Potassium (3.5-5.1) mmol/L Carbon Dioxide (22-30) mmol/L BUN (7-17) mg/dL Creatinine (0.52-1.04) mg/dL Glucose (74-99) mg/dL POC Glucose (mg/dL) 133 H (75-99) mg/dL Hemoglobin A1c 6.4 H (4.0-6.0) % Calcium (8.4-10.2) mg/dL Magnesium (1.6-2.3) mg/dL Iron 11 L (50-170) ug/dL Iron Saturation 4.62 L (12.00-45.00) Total Protein (6.3-8.2) g/dL Albumin (3.5-5.0) g/dL 05/09/18 05/10/18 05/10/18 Range/Units 19:50 06:37 06:37 WBC 10.8 H (3.8-10.6) k/uL Hgb 8.2 L (11.4-16.0) gm/dL Hct 26.0 L (34.0-46.0) % MCV 62.8 L (80.0-100.0) fL MCH 19.7 L (25.0-35.0) pg Neutrophils # 9.1 H (1.3-7.7) k/uL Lymphocytes # 0.7 L (1.0-4.8) k/uL Potassium 3.0 L (3.5-5.1) mmol/L Carbon Dioxide 33 H (22-30) mmol/L BUN 6 L (7-17) mg/dL Creatinine 0.32 L (0.52-1.04) mg/dL Glucose 109 H (74-99) mg/dL POC Glucose (mg/dL) 158 H (75-99) mg/dL Hemoglobin A1c (4.0-6.0) % Calcium 7.8 L (8.4-10.2) mg/dL Magnesium 1.4 L (1.6-2.3) mg/dL Iron (50-170) ug/dL Iron Saturation (12.00-45.00) Total Protein 4.8 L (6.3-8.2) g/dL Albumin 2.4 L (3.5-5.0) g/dL 05/10/18 05/10/18 05/10/18 Range/Units 07:13 11:45 14:18 WBC (3.8-10.6) k/uL Hgb (11.4-16.0) gm/dL Hct (34.0-46.0) % MCV (80.0-100.0) fL MCH (25.0-35.0) pg Neutrophils # (1.3-7.7) k/uL Lymphocytes # (1.0-4.8) k/uL Potassium (3.5-5.1) mmol/L Carbon Dioxide (22-30) mmol/L BUN (7-17) mg/dL Creatinine (0.52-1.04) mg/dL Glucose (74-99) mg/dL POC Glucose (mg/dL) 131 H 166 H 172 H (75-99) mg/dL Hemoglobin A1c (4.0-6.0) % Calcium (8.4-10.2) mg/dL Magnesium (1.6-2.3) mg/dL Iron (50-170) ug/dL Iron Saturation (12.00-45.00) Total Protein (6.3-8.2) g/dL Albumin (3.5-5.0) g/dL Microbiology - Last 24 Hours (Table) 05/07/18 20:30 Blood Culture - Preliminary Blood No Growth after 48 hours Assessment and Plan Assessment: Acute cholecystitis. Possible sepsis. Status post Laparoscopic cholecystectomy. Strep agalactiae urinary tract infection Microcytic anemia. Rule out iron deficiency. Hypokalemia Diabetes type 2. Diet controlled at home. Fibromyalgia Glaucoma Restless leg syndrome Previous history of smoking DVT prophylaxis Plan: Patient will be continued on oral diet. Gentle hydration.. Pain medications and bowel regimen. Continue with antibiotics in the form of Levaquin and Flagyl. Replace potassium. Encourage incentive spirometry and follow up closely. Insulin sliding scale. Further recommendations based on the clinical course. Time with Patient: Greater than 30
[2018-05-11] MEDS: MAGNESIUM SULFATE-D5W PMX 1 GM in DEXTROSE/WATER 1 100ML.BAG IVPB SCH ×2 (00:52→01:56)
[2018-05-11] MEDS: ACETAMINOPHEN TAB 500 MG TAB PO PRN (01:55)
[2018-05-11] MEDS: ALPRAZolam 1 MG TAB PO PRN ×2 (01:55→12:14)
[2018-05-11] MEDS: LEVOTHYROXINE 100 MCG TAB PO SCH (05:15)
[2018-05-11] MEDS: oxyCODONE-APAP 10-325MG 1 EACH TAB PO PRN ×4 (05:18→20:40)
[2018-05-11 07:00] LABS: Glucose,Whole Blood 108 mg/dL (75-99)
[2018-05-11] MEDS: DOCUSATE 100 MG CAP PO SCH ×2 (08:36→22:20)
[2018-05-11] MEDS: PANTOPRAZOLE 40 MG TABLET PO SCH ×2 (08:36→16:20)
[2018-05-11] MEDS: metroNIDAZOLE-NS PMX 500 MG in SALINE 1 100ML.BAG IVPB SCH (08:36)
[2018-05-11] MEDS: CARISOPRODOL 350 MG TAB PO SCH ×4 (08:36→22:20)
[2018-05-11] MEDS: MORPHINE SULFATE ER 60 MG TABLET PO SCH ×2 (08:37→22:18)
[2018-05-11] MEDS: INSULIN ASPART 100 UNIT/ML 1 ML 10 ML VIAL SQ SCH ×4 (08:37→22:12)
[2018-05-11] MEDS: ENOXAPARIN 40 MG/0.4 ML SYRINGE SQ SCH (08:37)
[2018-05-11 09:31] LABS: Basophils % (A) 0 %; Eosinophils # (A) 0.3 k/uL (0-0.7); Eosinophils % (A) 2 %; HCT 28.9 % (34.0-46.0); Hypochromasia Marked; Lymphocytes % (A) 7 %; MCHC 31.2 g/dL (31.0-37.0); MCV 64.2 fL (80.0-100.0); Mean Platelet Volume 6.4; Microcytosis Marked; Monocytes # (A) 0.7 k/uL (0-1.0); Monocytes % (A) 5 %; Neutrophils # (A) 11.1 k/uL (1.3-7.7); Neutrophils % (A) 84 %; Platelet Count 347 k/uL (150-450); RDW 14.5 % (11.5-15.5); WBC 13.2 k/uL (3.8-10.6)
[2018-05-11 09:59] LABS: ALT 21 U/L (9-52); AST 16 U/L (14-36); Albumin 2.5 g/dL (3.5-5.0); Alkaline Phosphatase 93 U/L (38-126); Anion Gap 9 mmol/L; Blood Urea Nitrogen 6 mg/dL (7-17); Calcium 8.2 mg/dL (8.4-10.2); Carbon Dioxide 29 mmol/L (22-30); Chloride 103 mmol/L (98-107); Glucose 115 mg/dL (74-99); Magnesium 2.1 mg/dL (1.6-2.3); Potassium 3.7 mmol/L (3.5-5.1); Sodium 141 mmol/L (137-145); Total Bilirubin 0.3 mg/dL (0.2-1.3); Total Protein 5.1 g/dL (6.3-8.2)
[2018-05-11] MEDS ORDERED: Potassium Replacement Protocol 1 EACH MISC MISCELLANE PRN (10:59)
[2018-05-11] MEDS ORDERED: POTASSIUM CHLORIDE ER 20 MEQ TAB.ER PO SCH (11:00)
[2018-05-11 11:57] LABS: Glucose,Whole Blood 105 mg/dL (75-99)
--- NOTE | 2018-05-11 12:31 | P.PN ---
Subjective Progress Note Date: 05/11/18 52-year-old female seen sitting up in a chair. Patient is postop day 3. Patient presented with a gangrenous cholecystitis. Underwent laparoscopic cholecystectomy. Patient states tolerating a diet. Pain medication effective for pain control. Had a bowel movement. White count 13.2 this morning Objective - Vital Signs Vital signs: Vital Signs Temp 98.7 F 05/11/18 07:00 Pulse 62 05/11/18 07:00 Resp 12 05/11/18 07:00 BP 100/63 05/11/18 07:00 Pulse Ox 95 05/11/18 08:01 Intake & Output 05/10/18 05/11/18 05/11/18 18:59 06:59 18:59 Intake Total 1290 Balance 1290 Intake: Intake, IV Titration 1050 Amount 0.9% NaCl with KCl 40 Meq 1050 /l 1,000 ml @ 75 mls/hr IV .[id number] JOHANNA Rx#: [id number] Oral 240 Other: Voiding Method Toilet # Voids 2 2 - Exam Physical exam 52-year-old female sitting up in bed does not appear in any acute distress states pain medication effective for pain control Lungs adequate air movement bilaterally able to use I-S achieving a 1000 for shortness of breath heart S1-S2 audible regular abdomen soft surgical tenderness appropriate surgical dressings dry no nausea no vomiting tolerating diet no stool No edema noted to the extremity - Labs CBC & Chem 7: 05/11/18 08:46 05/11/18 08:46 Labs: Abnormal Lab Results - Last 24 Hours (Table) 05/10/18 05/10/18 05/10/18 Range/Units 14:18 17:32 20:19 WBC (3.8-10.6) k/uL Hgb (11.4-16.0) gm/dL Hct (34.0-46.0) % MCV (80.0-100.0) fL MCH (25.0-35.0) pg Neutrophils # (1.3-7.7) k/uL BUN (7-17) mg/dL Creatinine (0.52-1.04) mg/dL Glucose (74-99) mg/dL POC Glucose (mg/dL) 172 H 105 H 130 H (75-99) mg/dL Calcium (8.4-10.2) mg/dL Total Protein (6.3-8.2) g/dL Albumin (3.5-5.0) g/dL 05/11/18 05/11/18 05/11/18 Range/Units 06:43 08:46 08:46 WBC 13.2 H (3.8-10.6) k/uL Hgb 9.0 L (11.4-16.0) gm/dL Hct 28.9 L (34.0-46.0) % MCV 64.2 L (80.0-100.0) fL MCH 20.0 L (25.0-35.0) pg Neutrophils # 11.1 H (1.3-7.7) k/uL BUN 6 L (7-17) mg/dL Creatinine 0.39 L (0.52-1.04) mg/dL Glucose 115 H (74-99) mg/dL POC Glucose (mg/dL) 108 H (75-99) mg/dL Calcium 8.2 L (8.4-10.2) mg/dL Total Protein 5.1 L (6.3-8.2) g/dL Albumin 2.5 L (3.5-5.0) g/dL 05/11/18 Range/Units 11:39 WBC (3.8-10.6) k/uL Hgb (11.4-16.0) gm/dL Hct (34.0-46.0) % MCV (80.0-100.0) fL MCH (25.0-35.0) pg Neutrophils # (1.3-7.7) k/uL BUN (7-17) mg/dL Creatinine (0.52-1.04) mg/dL Glucose (74-99) mg/dL POC Glucose (mg/dL) 105 H (75-99) mg/dL Calcium (8.4-10.2) mg/dL Total Protein (6.3-8.2) g/dL Albumin (3.5-5.0) g/dL Microbiology - Last 24 Hours (Table) 05/07/18 20:30 Blood Culture - Preliminary Blood No Growth after 72 hours Assessment and Plan Assessment: Impression Present on admission right upper quadrant pain suspect due to cholelithiasis and cholecystitis Postop April 07 laparoscopic cholecystectomy for acute cholelithiasis and cholecystitis Leukocytosis Strep agalactiae urinary tract infection on IV Levaquin and Flagyl Microcytic anemia. Rule out iron deficiency. Hypokalemia Diabetes type 2. Diet controlled at home. Plan Continue postop surgical care Recommendations by medicine for IV antibiotics Pain control Increase activity Anticipate discharge within the next 24 to 48 hours DVT and GI prophylaxis The above impression and plan of care have been discussed and directed by signing physician. Ermelinda Sharp nurse practitioner acting as scribe for signing physician.
--- NOTE | 2018-05-11 16:02 | P.PN ---
Subjective Progress Note Date: 05/11/18 Progress note being dictated for Dr. Dee. Interval history:Patient is a 52-year-old female with a known history of fibromyalgia, diet-controlled diabetes type 2, restless leg syndrome and other multiple medical problems came to ER with complaints of right lower quadrant pain.Patient states that she has been experiencing right lower quadrant pain which radiates to her posterior axillary line for approximately 3 days. Patient describes the pain as a waxing and waning achy, intermittent stabs in the right lower quadrant which radiated to the posterior axillary line. Patient has additional complaints of fever/chills, dysuria, nausea without emesis. Patient denies chest pain, heart palpitations, shortness of breath, pleuritic chest pain. Patient says that she's been getting workup for cardiac problems. Patient did have chemical stress test and is following cardiology for that. CT of the abdomen pelvis showed dilated gallbladder with marked wall thickening. There is some fluid in the right upper quadrant. Findings are consistent with acute cholecystitis. No dilated ducts. EKG showed normal sinus rhythm. Patient is currently status post laparoscopic cholecystectomy. 05/09/2018 Patient is still complaining of abdominal soreness. No fever no chills. Started on Oral diet. Potassium is being replaced. No complains of chest pain or shortness of breath. Patient does have nausea. No episodes of vomiting. 05/10/2018 Patient says that her pain is better today. No fever no chills. Otherwise patient is short stating that 90% on room air. Chest x-ray showed bilateral small pleural effusion. Patient was given IV Lasix and fluids will be held at this time and reassess tomorrow. Potassium will be replaced per protocol. Patient was encouraged with oral diet. No chest pain. Patient does have some short of breath. No headache or dizziness or lightheadedness. 05/11/2018 pain better controlled. Diet intake improving, no nausea vomiting or diarrhea. Blood sugars controlled. Positive bowel movement .Afebrile, WBC up to 13.2. Urine screen reporting strep agalactiae group B. Blood cultures negative at 72 hours. Maintained on Levaquin and Flagyl. Incentive spirometer up to one thousand. Objective - Vital Signs Vital signs: Vital Signs Temp 98.7 F 05/11/18 07:00 Pulse 62 05/11/18 07:00 Resp 12 05/11/18 07:00 BP 100/63 05/11/18 07:00 Pulse Ox 95 05/11/18 08:01 Intake & Output 05/10/18 05/11/18 05/11/18 18:59 06:59 18:59 Intake Total 1290 600 Balance 1290 600 Intake: Intake, IV Titration 1050 600 Amount 0.9% NaCl with KCl 40 Meq 1050 600 /l 1,000 ml @ 75 mls/hr IV .[id number] JOHANNA Rx#: [id number] Oral 240 Other: Voiding Method Toilet # Voids 2 2 - Exam GENERAL: Sitting up in the bed comfortably, no acute distress, awake alert and oriented. HEENT: Normocephalic. Neck is supple. Pupils reactive. Oral mucosa moist Neck reveals no JVD, carotid bruits, or thyromegaly. CHEST EXAMINATION: Nonlabored breathing. Minimal left basilar crackles. No wheezing. CARDIAC: Normal S1, S2 with no gallops. No murmurs ABDOMEN: Soft. Tender, status post surgery. Bowel sounds sluggish. No organomegaly. Extremities: reveal no edema. No clubbing or cyanosis Neurologically awake, alert, oriented x3 with well-coordinated movements. No focal deficits noted Skin: No rash or skin lesions. - Labs CBC & Chem 7: 05/11/18 08:46 05/11/18 08:46 Labs: Abnormal Lab Results - Last 24 Hours (Table) 05/10/18 05/10/18 05/11/18 Range/Units 17:32 20:19 06:43 WBC (3.8-10.6) k/uL Hgb (11.4-16.0) gm/dL Hct (34.0-46.0) % MCV (80.0-100.0) fL MCH (25.0-35.0) pg Neutrophils # (1.3-7.7) k/uL BUN (7-17) mg/dL Creatinine (0.52-1.04) mg/dL Glucose (74-99) mg/dL POC Glucose (mg/dL) 105 H 130 H 108 H (75-99) mg/dL Calcium (8.4-10.2) mg/dL Total Protein (6.3-8.2) g/dL Albumin (3.5-5.0) g/dL 05/11/18 05/11/18 05/11/18 Range/Units 08:46 08:46 11:39 WBC 13.2 H (3.8-10.6) k/uL Hgb 9.0 L (11.4-16.0) gm/dL Hct 28.9 L (34.0-46.0) % MCV 64.2 L (80.0-100.0) fL MCH 20.0 L (25.0-35.0) pg Neutrophils # 11.1 H (1.3-7.7) k/uL BUN 6 L (7-17) mg/dL Creatinine 0.39 L (0.52-1.04) mg/dL Glucose 115 H (74-99) mg/dL POC Glucose (mg/dL) 105 H (75-99) mg/dL Calcium 8.2 L (8.4-10.2) mg/dL Total Protein 5.1 L (6.3-8.2) g/dL Albumin 2.5 L (3.5-5.0) g/dL Microbiology - Last 24 Hours (Table) 05/07/18 20:30 Blood Culture - Preliminary Blood No Growth after 72 hours Assessment and Plan Assessment: Acute cholecystitis. Possible sepsis. Status post Laparoscopic cholecystectomy. Strep agalactiae urinary tract infection Microcytic anemia. Rule out iron deficiency. Hypokalemia Diabetes type 2. Diet controlled at home. Fibromyalgia Glaucoma Restless leg syndrome Previous history of smoking Plan: Continue on current medication regime ,monitoring and symptomatic treatment. Pain management. Increase ambulation as tolerated. Aggressive pulmonary toileting. Smoking cessation readdressed. Discharge planning in progress for tomorrow as per surgery. The impression and plan of care has been dictated as directed. : I performed a history and examination of this patient, discussed the same with the dictator. I agree with the dictator's note ,documented as a scribe. Any additional findings or plans will be noted.
[2018-05-11] MEDS: metroNIDAZOLE 500 MG TAB PO SCH ×2 (16:21→22:20)
[2018-05-11] MEDS: ALPRAZolam 1 MG TAB PO SCH (17:22)
[2018-05-11 17:32] LABS: Glucose,Whole Blood 106 mg/dL (75-99)
[2018-05-11] MEDS ORDERED: LEVOFLOXACIN 750 MG TAB PO SCH (21:00)
[2018-05-11 22:19] LABS: Glucose,Whole Blood 113 mg/dL (75-99)
[2018-05-12] MEDS: oxyCODONE-APAP 10-325MG 1 EACH TAB PO PRN ×2 (05:46→11:55)
[2018-05-12] MEDS: LEVOTHYROXINE 100 MCG TAB PO SCH (05:46)
[2018-05-12 07:33] LABS: Glucose,Whole Blood 104 mg/dL (75-99)
[2018-05-12 08:53] VITALS: BP 125/57; PULSE 70; RESP 16; TEMP 98.8
[2018-05-12] MEDS: INSULIN ASPART 100 UNIT/ML 1 ML 10 ML VIAL SQ SCH ×2 (09:42→13:49)
[2018-05-12] MEDS: ENOXAPARIN 40 MG/0.4 ML SYRINGE SQ SCH (09:43)
[2018-05-12] MEDS: MORPHINE SULFATE ER 60 MG TABLET PO SCH (09:43)
[2018-05-12] MEDS: DOCUSATE 100 MG CAP PO SCH (09:44)
[2018-05-12] MEDS: PANTOPRAZOLE 40 MG TABLET PO SCH (09:44)
[2018-05-12] MEDS: ALPRAZolam 1 MG TAB PO SCH (09:44)
[2018-05-12] MEDS: CARISOPRODOL 350 MG TAB PO SCH ×2 (09:44→13:48)
[2018-05-12] MEDS: metroNIDAZOLE 500 MG TAB PO SCH (09:44)
[2018-05-12 10:32] LABS: ALT 24 U/L (9-52); AST 10 U/L (14-36); Albumin 2.5 g/dL (3.5-5.0); Alkaline Phosphatase 91 U/L (38-126); Anion Gap 7 mmol/L; Blood Urea Nitrogen 11 mg/dL (7-17); Calcium 8.1 mg/dL (8.4-10.2); Carbon Dioxide 27 mmol/L (22-30); Chloride 105 mmol/L (98-107); Glucose 89 mg/dL (74-99); Magnesium 1.6 mg/dL (1.6-2.3); Sodium 139 mmol/L (137-145); Total Bilirubin 0.3 mg/dL (0.2-1.3); Total Protein 5.1 g/dL (6.3-8.2)
[2018-05-12 12:00] LABS: Glucose,Whole Blood 104 mg/dL (75-99)
--- NOTE | 2018-05-12 12:29 | P.DS ---
Providers Date of admission: 05/07/18 23:15 Expected date of discharge: 05/12/18 Attending physician: Emanuel Davila Consults: 05/08/18 13:40 Consult Physician Routine Consulting Provider: Clifton Dee Consult Reason/Comments: med manage Do you want consulting provider notified?: Yes Primary care physician: [facility] Hospital Course: 52-year-old female was admitted to the emergency room after patient was being seen for right lower quadrant abdominal pain workup showed evidence of cholelithiasis and cholecystitis on May 08 patient underwent a laparoscopic cholecystectomy for acute cholecystitis. Postop no events. The urine screening report strep agalactiae group B blood cultures were negative at 72 hours patient was maintained on Levaquin and Flagyl at the time of discharge Levaquin was felt to be effective coverage Surgical dressing at the time of discharge dry and intact. Abdomen soft nondistended pain medication effective for pain control patient was felt to be appropriate to be discharged home Impression discharge diagnosis Present on admission right upper quadrant pain suspect due to cholelithiasis and gangrenous cholecystitis Postop April 07 laparoscopic cholecystectomy for acute cholelithiasis and cholecystitis Leukocytosis Strep agalactiae urinary tract infection on IV Levaquin and Flagyl Microcytic anemia. Rule out iron deficiency. Hypokalemia Diabetes type 2. Diet controlled at home. Chronic pain opiate dependent The above impression and plan of care have been discussed and directed by signing physician. Ermelinda Sharp nurse practitioner acting as scribe for signing physician. Patient Condition at Discharge: Good Plan - Discharge Summary Discharge Rx Participant: Yes New Discharge Prescriptions: New HYDROcodone/APAP 7.5-325MG [W[place] 7.5-325] 1 tab PO Q4H PRN 3 Days #18 tab PRN Reason: Pain Levofloxacin [Levaquin] 500 mg PO DAILY #7 tab No Action Carisoprodol [Soma] 350 mg PO QID ALPRAZolam [Xanax] 1 mg PO QID PRN PRN Reason: Anxiety oxyCODONE-APAP 10-325MG [Percocet 10-325] 1 tab PO Q4H PRN PRN Reason: Pain Morphine Sulfate ER [Ms Contin 60Mg] 60 mg PO Q12HR Levothyroxine Sodium [Synthroid] 100 mcg PO DAILY Zolpidem [Ambien] 10 mg PO HS PRN PRN Reason: Insomnia Meclizine [Antivert] 25 mg PO BID PRN PRN Reason: Vertigo Aspirin EC [Ecotrin] 325 mg PO DAILY PRN PRN Reason: Pain Omeprazole 20 mg PO BID Carboxymethylcellulose Sodium [Refresh Tears] 1 drop BOTH EYES DAILY PRN PRN Reason: Dry Eye(S) Discharge Medication List ALPRAZolam [Xanax] 1 mg PO QID PRN 01/12/15 [History] Carisoprodol [Soma] 350 mg PO QID 01/12/15 [History] Levothyroxine Sodium [Synthroid] 100 mcg PO DAILY 01/12/15 [History] Morphine Sulfate ER [Ms Contin 60Mg] 60 mg PO Q12HR 01/12/15 [History] oxyCODONE-APAP 10-325MG [Percocet 10-325] 1 tab PO Q4H PRN 01/12/15 [History] Aspirin EC [Ecotrin] 325 mg PO DAILY PRN 11/12/17 [History] Meclizine [Antivert] 25 mg PO BID PRN 11/12/17 [History] Omeprazole 20 mg PO BID 11/12/17 [History] Zolpidem [Ambien] 10 mg PO HS PRN 11/12/17 [History] Carboxymethylcellulose Sodium [Refresh Tears] 1 drop BOTH EYES DAILY PRN [History] HYDROcodone/APAP 7.5-325MG [W[place] 7.5-325] 1 tab PO Q4H PRN 3 Days #18 tab 05/08 [Rx] Levofloxacin [Levaquin] 500 mg PO DAILY #7 tab 05/12/18 [Rx] Follow up Appointment(s)/Referral(s): Lei Tony DO [Primary Care Provider] - 1-2 days Emanuel Davila MD [STAFF PHYSICIAN] - 1 Week Patient Instructions/Handouts: *Surgery [facility] - Scopalamine Patch Instructions Activity/Diet/Wound Care/Special Instructions: No tub bath for six weeks. Shower daily. No lifting over 10 pounds for the next 2 weeks. Low-fat diet. May use ice packs to surgical site. No driving while taking narcotic for pain. Do not remove the plastic surgical dressings will be removed follow-up office visit or they will fall off on their on Discharge Disposition: HOME SELF-CARE
--- NOTE | 2018-05-12 17:45 | P.PN ---
Subjective Progress Note Date: 05/12/18 Progress note being dictated for Dr. Dee. Interval history:Patient is a 52-year-old female with a known history of fibromyalgia, diet-controlled diabetes type 2, restless leg syndrome and other multiple medical problems came to ER with complaints of right lower quadrant pain.Patient states that she has been experiencing right lower quadrant pain which radiates to her posterior axillary line for approximately 3 days. Patient describes the pain as a waxing and waning achy, intermittent stabs in the right lower quadrant which radiated to the posterior axillary line. Patient has additional complaints of fever/chills, dysuria, nausea without emesis. Patient denies chest pain, heart palpitations, shortness of breath, pleuritic chest pain. Patient says that she's been getting workup for cardiac problems. Patient did have chemical stress test and is following cardiology for that. CT of the abdomen pelvis showed dilated gallbladder with marked wall thickening. There is some fluid in the right upper quadrant. Findings are consistent with acute cholecystitis. No dilated ducts. EKG showed normal sinus rhythm. Patient is currently status post laparoscopic cholecystectomy. 05/09/2018 Patient is still complaining of abdominal soreness. No fever no chills. Started on Oral diet. Potassium is being replaced. No complains of chest pain or shortness of breath. Patient does have nausea. No episodes of vomiting. 05/10/2018 Patient says that her pain is better today. No fever no chills. Otherwise patient is short stating that 90% on room air. Chest x-ray showed bilateral small pleural effusion. Patient was given IV Lasix and fluids will be held at this time and reassess tomorrow. Potassium will be replaced per protocol. Patient was encouraged with oral diet. No chest pain. Patient does have some short of breath. No headache or dizziness or lightheadedness. 05/11/2018 pain better controlled. Diet intake improving, no nausea vomiting or diarrhea. Blood sugars controlled. Positive bowel movement .Afebrile, WBC up to 13.2. Urine screen reporting strep agalactiae group B. Blood cultures negative at 72 hours. Maintained on Levaquin and Flagyl. Incentive spirometer up to one thousand. 05/12/2018 significant clinical improvement. Pain controlled. Maintained on antibiotics. Tolerating diet with no nausea or vomiting, passing flatus. T- max 99.7. Incentive spirometer up to 1500 .Maintaining O2 sats of 94-97% on room air. Denies chest pain, palpitations or increasing shortness of breath. Awaiting discharge home today as per surgery. Objective - Vital Signs Vital signs: Vital Signs Temp 98.8 F 05/12/18 07:00 Pulse 70 05/12/18 07:00 Resp 16 05/12/18 07:00 BP 125/57 05/12/18 07:00 Pulse Ox 94 L 05/12/18 07:00 Intake & Output 05/11/18 05/12/18 05/12/18 18:59 06:59 18:59 Intake Total 600 720 Balance 600 720 Weight 59.874 kg Intake: Intake, IV Titration 600 Amount 0.9% NaCl with KCl 40 Meq 600 /l 1,000 ml @ 75 mls/hr IV .[id number] JOHANNA Rx#: [id number] Oral 720 Other: # Voids 1 - Exam GENERAL: Sitting up in the bed comfortably, no acute distress, awake alert and oriented. HEENT: Normocephalic. Neck is supple. Pupils reactive. Oral mucosa moist Neck reveals no JVD, carotid bruits, or thyromegaly. CHEST EXAMINATION: Nonlabored breathing. Bilateral bases diminished, no rhonchi , no crackles, No wheezing. CARDIAC: Normal S1, S2 with no gallops. No murmurs ABDOMEN: Soft. Tender, status post surgery. Bowel sounds sluggish. No organomegaly. Extremities: reveal no edema. No clubbing or cyanosis Neurologically awake, alert, oriented x3 with well-coordinated movements. No focal deficits noted - Labs CBC & Chem 7: 05/11/18 08:46 05/12/18 07:32 Labs: Abnormal Lab Results - Last 24 Hours (Table) 05/11/18 05/12/18 05/12/18 Range/Units 22:07 07:31 07:32 Creatinine 0.39 L (0.52-1.04) mg/dL POC Glucose (mg/dL) 113 H 104 H (75-99) mg/dL Calcium 8.1 L (8.4-10.2) mg/dL AST 10 L (14-36) U/L Total Protein 5.1 L (6.3-8.2) g/dL Albumin 2.5 L (3.5-5.0) g/dL 05/12/18 Range/Units 11:54 Creatinine (0.52-1.04) mg/dL POC Glucose (mg/dL) 104 H (75-99) mg/dL Calcium (8.4-10.2) mg/dL AST (14-36) U/L Total Protein (6.3-8.2) g/dL Albumin (3.5-5.0) g/dL Microbiology - Last 24 Hours (Table) 05/07/18 20:30 Blood Culture - Preliminary Blood No Growth after 96 hours Assessment and Plan Assessment: Acute cholecystitis. Possible sepsis. Status post Laparoscopic cholecystectomy. Strep agalactiae urinary tract infection Microcytic anemia. Rule out iron deficiency. Hypokalemia Diabetes type 2. Diet controlled at home. Fibromyalgia Glaucoma Restless leg syndrome Previous history of smoking Plan: Continue on current medication regime ,monitoring and symptomatic treatment. Aggressive pulmonary toileting. Smoking cessation readdressed. Discharge planning in progress today as per surgery. Follow-up with PCP in 1 week The impression and plan of care has been dictated as directed. : I performed a history and examination of this patient, discussed the same with the dictator. I agree with the dictator's note ,documented as a scribe. Any additional findings or plans will be noted.
== END 2018-05-12 14:48 | disposition home or self-care (01) | DRG 854 ==
LOC: EC 19:41 → 4SSUR 23:15
PROVIDERS: ADMIT Surgery; ATTEND Surgery
PROC: 0FT44ZZ Resection of Gallbladder, Percutaneous Endoscopic Approach (ICD-10-PCS; principal; 2018-05-07)
DX: A41.9 Sepsis, unspecified organism (principal); K80.00 Calculus of gallbladder with acute cholecystitis without obstruction; N39.0 Urinary tract infection, site not specified; F11.20 Opioid dependence, uncomplicated; E11.9 Type 2 diabetes mellitus without complications; G25.81 Restless legs syndrome; E87.6 Hypokalemia; M79.7 Fibromyalgia; D50.9 Iron deficiency anemia, unspecified; B95.1 Streptococcus, group B, as the cause of diseases classified elsewhere; F17.200 Nicotine dependence, unspecified, uncomplicated; G89.4 Chronic pain syndrome; H40.9 Unspecified glaucoma; Z79.82 Long term (current) use of aspirin; Z80.49 Family history of malignant neoplasm of other genital organs; Z82.49 Family history of ischemic heart disease and other diseases of the circulatory system; Z80.3 Family history of malignant neoplasm of breast
CPT/HCPCS: 36415; 71046; 74177; 80053; 81001; 81025; 82150; 82330; 82728; 83036; 83540; 83550; 83605; 83690; 83735; 84484; 85025; 87040; 87086; 88304; 93005; 94760; 96361; 96374; 96375; 99285

== ENCOUNTER 2018-12-11 14:02 | Emergency (ER) | payer BC ==
[2018-12-11 14:19] VITALS: TEMP 98.1
[2018-12-11] MEDS ORDERED: KETOROLAC 60 MG/2 ML VIAL IM STA (14:56)
--- NOTE | 2018-12-11 15:09 | ED ---
General Adult HPI - General Chief complaint: Extremity Problem,Nontraumatic Stated complaint: Pain in arm Time Seen by Provider: 12/11/18 14:15 Source: patient, RN notes reviewed Mode of arrival: ambulatory Limitations: no limitations - History of Present Illness Initial comments: This is a 53-year-old female presents emergency department stating that she woke up this morning felt fine and then all of a sudden she started having this sharp chest pain in the medial aspect of her elbow. Patient states he got very painful to about a 7 out of 10 and then subsided. Patient states she had no swelling no redness. Patient states the area is somewhat tender to touch and it does appear to be at the distal aspects of her bicep. Patient states she had no difficulty breathing no shortness of breath no chest pain. Patient states she had no palpitations today but over the last week or so she occasionally has had some palpitations. Patient denies any fever chills or cough per patient denies headache patient denies numbness weakness. Patient denies lightheadedness dizziness or near syncopal episode. - Related Data Home Medications Medication Instructions Recorded Confirmed ALPRAZolam [Xanax] 1 mg PO QID PRN 01/12/15 12/11/18 Carisoprodol [Soma] 350 mg PO QID 01/12/15 12/11/18 Levothyroxine Sodium [Synthroid] 100 mcg PO DAILY 01/12/15 12/11/18 Morphine Sulfate ER [Ms Contin 60 mg PO Q12HR 01/12/15 12/11/18 60Mg] oxyCODONE-APAP 10-325MG [Percocet 1 tab PO Q4H PRN 01/12/15 12/11/18 10-325] Aspirin EC [Ecotrin] 325 mg PO DAILY PRN 11/12/17 12/11/18 Meclizine [Antivert] 25 mg PO BID PRN 11/12/17 12/11/18 Omeprazole 20 mg PO BID 11/12/17 12/11/18 Zolpidem [Ambien] 10 mg PO HS PRN 11/12/17 12/11/18 Carboxymethylcellulose Sodium 1 drop BOTH EYES DAILY PRN 05/07/18 12/11/18 [Refresh Tears] Furosemide [Lasix] 20 mg PO DAILY 12/11/18 12/11/18 Potassium Chloride ER [K-Dur 10] 10 meq PO BID 12/11/18 12/11/18 Allergies Allergy/AdvReac Type Severity Reaction Status Date / Time gabapentin [From Neurontin] Allergy Swelling Verified 12/11/18 14:37 Iodinated Contrast- Oral and Allergy Rash/Hives Verified 12/11/18 14:37 IV Dye [Iodinated Contrast Media - IV Dye] Penicillins Allergy Rash/Hives Verified 12/11/18 14:37 sulfamethoxazole Allergy Rash/Hives Verified 12/11/18 14:37 [From Bactrim] trimethoprim [From Bactrim] Allergy Rash/Hives Verified 12/11/18 14:37 walnut Allergy Anaphylaxis Verified 12/11/18 14:37 Review of Systems ROS Statement: Those systems with pertinent positive or pertinent negative responses have been documented in the HPI. ROS Other: All systems not noted in ROS Statement are negative. Past Medical History Past Medical History: Diabetes Mellitus, Fibromyalgia Additional Past Medical History / Comment(s): glaucoma, TMJ, anemia, restless leg syndrome History of Any Multi-Drug Resistant Organisms: None Reported Past Surgical History: Section, Hernia Repair Additional Past Surgical History / Comment(s): peripheral iridotomy eye sx, c section x2 Past Anesthesia/Blood Transfusion Reactions: No Reported Reaction Past Psychological History: No Psychological Hx Reported Smoking Status: Current every day smoker Past Alcohol Use History: None Reported Past Drug Use History: None Reported - Past Family History Mother Family Medical History: Cancer Additional Family Medical History / Comment(s): breast and uterine cancer recently Father Family Medical History: Myocardial Infarction ([place]) Additional Family Medical History / Comment(s): Heart problems General Exam - General Exam Comments Initial Comments: GENERAL: Patient is well-developed and well-nourished. Patient is nontoxic and well- hydrated and is in no acute distress. ENT: Neck is soft and supple. No significant lymphadenopathy is noted. Oropharynx is clear. Moist mucous membranes. Neck has full range of motion without eliciting any pain. EYES: The sclera were anicteric and conjunctiva were pink and moist. Extraocular movements were intact and pupils were equal round and reactive to light. Eyelids were unremarkable. PULMONARY: Unlabored respirations. Good breath sounds bilaterally. No audible rales rhonchi or wheezing was noted. CARDIOVASCULAR: There is a regular rate and rhythm without any murmurs gallops or rubs. ABDOMEN: Soft and nontender with normal bowel sounds. No palpable organomegaly was noted. There is no palpable pulsatile mass. SKIN: Skin is clear with no lesions or rashes and otherwise unremarkable. NEUROLOGIC: Patient is alert and oriented x3. Cranial nerves II through XII are grossly intact. Motor and sensory are also intact. Normal speech, volume and content. Symmetrical smile. MUSCULOSKELETAL: Normal extremities with adequate strength and full range of motion. No lower extremity swelling or edema. No calf tenderness. Distal medial aspect of the biceps is tender to palpation there is no swelling redness to the area LYMPHATICS: No significant lymphadenopathy is noted PSYCHIATRIC: Normal psychiatric evaluation. Limitations: no limitations Course Vital Signs 12/11/18 14:17 Temperature 98.1 F Pulse Rate 83 Respiratory 20 Rate Blood Pressure 112/54 O2 Sat by Pulse 99 Oximetry Medical Decision Making - Medical Decision Making EKG shows normal sinus rhythm at 73 bpm AR interval 230 QRS is 88 QT interval 396 QTC is 436. Patient's EKG shows no ST segment elevation or depression or T wave abnormalities are noted. Patient received a Toradol shot emergency department her pain completely resolved in the arm. - Lab Data Result diagrams: 12/11/18 15:05 Lab Results 12/11/18 Range/Units 15:05 Sodium 141 (137-145) mmol/L Potassium 4.1 (3.5-5.1) mmol/L Chloride 107 (98-107) mmol/L Carbon Dioxide 28 (22-30) mmol/L Anion Gap 6 mmol/L BUN 16 (7-17) mg/dL Creatinine 0.63 (0.52-1.04) mg/dL Est GFR (CKD-EPI)AfAm >90 (>60 ml/min/1.73 sqM) Est GFR (CKD-EPI)NonAf >90 (>60 ml/min/1.73 sqM) Glucose 95 (74-99) mg/dL Calcium 8.5 (8.4-10.2) mg/dL Total Bilirubin 0.1 L (0.2-1.3) mg/dL AST 16 (14-36) U/L ALT 16 (9-52) U/L Alkaline Phosphatase 69 (38-126) U/L Total Protein 6.1 L (6.3-8.2) g/dL Albumin 3.7 (3.5-5.0) g/dL Disposition Clinical Impression: Musculoskeletal pain of left upper extremity Disposition: HOME SELF-CARE Instructions (If sedation given, give patient instructions): Musculoskeletal Pain (ED) Is patient prescribed a controlled substance at d/c from ED?: No Referrals: Lei Tony DO [Primary Care Provider] - 1-2 days Time of Disposition: 16:31
[2018-12-11 15:29] LABS: ALT 16 U/L (9-52); AST 16 U/L (14-36); African American GFR (CKD) >90 (>60 ml/min/1.73 sqM); Albumin 3.7 g/dL (3.5-5.0); Alkaline Phosphatase 69 U/L (38-126); Anion Gap 6 mmol/L; Blood Urea Nitrogen 16 mg/dL (7-17); Calcium 8.5 mg/dL (8.4-10.2); Carbon Dioxide 28 mmol/L (22-30); Chloride 107 mmol/L (98-107); Glucose 95 mg/dL (74-99); Potassium 4.1 mmol/L (3.5-5.1); Sodium 141 mmol/L (137-145); Total Bilirubin 0.1 mg/dL (0.2-1.3); Total Protein 6.1 g/dL (6.3-8.2)
[2018-12-11 17:07] VITALS: BP 97/47; PULSE 69; RESP 16
== END 2018-12-11 17:02 | disposition home or self-care (01) ==
LOC: EC 14:02
DX: M79.602 Pain in left arm (principal); M79.7 Fibromyalgia; F17.200 Nicotine dependence, unspecified, uncomplicated; Z79.890 Hormone replacement therapy; Z79.899 Other long term (current) drug therapy; Z79.891 Long term (current) use of opiate analgesic; Z88.0 Allergy status to penicillin; Z88.1 Allergy status to other antibiotic agents; Z88.2 Allergy status to sulfonamides; Z91.018 Allergy to other foods; Z91.041 Radiographic dye allergy status; Z88.8 Allergy status to other drugs, medicaments and biological substances
CPT/HCPCS: 36415; 93005; 80053; 99284; 96372; J1885

== ENCOUNTER 2019-03-23 16:30 | Emergency (ER) | payer BC ==
[2019-03-23 17:50] VITALS: RESP 18
--- NOTE | 2019-03-23 19:28 | XR ---
PROCEDURE: XR tibia fibula LT - 2V DATE AND TIME: 03/23/2019 6:21 PM CLINICAL INDICATION: PHH; pain after injury TECHNIQUE: Department protocol COMPARISON: None FINDINGS: There is no fracture or malalignment. The soft tissues are unremarkable. IMPRESSION: NO ACUTE PROCESS.
--- NOTE | 2019-03-23 19:29 | XR ---
PROCEDURE: XR knee 4V LT - 4V DATE AND TIME: 03/23/2019 6:21 PM CLINICAL INDICATION: PHH; pain after injury TECHNIQUE: Department protocol COMPARISON: None FINDINGS: There is no fracture or malalignment. The soft tissues are unremarkable. IMPRESSION: NO ACUTE PROCESS.
--- NOTE | 2019-03-23 19:40 | ED ---
General Adult HPI - General Chief complaint: Fall Stated complaint: Twisted left leg/pain Time Seen by Provider: 03/23/19 17:28 Source: patient, RN notes reviewed, old records reviewed Mode of arrival: ambulatory Limitations: physical limitation - History of Present Illness Initial comments: 53-year-old male patient presents with chief complaint of left knee and tibia- fibula injury. Patient reports that approximate 4 days ago she was vacuuming, when her foot got tangled in the court, she took a long step forward to attempt to get the bed to avoid tripping, patient reports that she felt pain in her proximal tibia/fibular region in her distal aspect for knee. Patient denies any fall to ground any head or trauma. Patient has been ambulatory but with antalgic gait. Patient believes that she strained her muscles she also has some medial thigh pain and Pain with range of motion this began after the minor trauma. Data chest and respiratory denies any other complaints. Systemic: Pt denies fatigue, fever/chills, rash. Pt denies weakness, night sweats, weight loss. Neuro: Pt denies headache, visual disturbances, syncope or pre-syncope. HEENT: Pt denies ocular discharge or irritation, otalgia, rhinorrhea, pharyngitis or notable lymphadenopathy. Cardiopulmonary: Pt denies chest pain, SOB, heart palpitations, dyspnea on exertion. Abdominal/GI: Pt denies abdominal pain, n/v/d. : Pt denies dysuria, burning w/ urination, frequency/urgency. Denies new onset urinary or bowel incontinence. MSK: Pt denies myalgia, loss of strength or function in extremities. Neuro: Pt denies new onset weakness, paresthesias. - Related Data Home Medications Medication Instructions Recorded Confirmed ALPRAZolam [Xanax] 1 mg PO QID PRN 01/12/15 03/23/19 Carisoprodol [Soma] 350 mg PO QID 01/12/15 03/23/19 Levothyroxine Sodium [Synthroid] 100 mcg PO DAILY 01/12/15 03/23/19 Morphine Sulfate ER [Ms Contin 60 mg PO Q12HR 01/12/15 03/23/19 60Mg] oxyCODONE-APAP 10-325MG [Percocet 1 tab PO Q4H PRN 01/12/15 03/23/19 10-325] Aspirin EC [Ecotrin] 325 mg PO DAILY PRN 11/12/17 03/23/19 Meclizine [Antivert] 25 mg PO BID PRN 11/12/17 03/23/19 Omeprazole 20 mg PO BID 11/12/17 03/23/19 Zolpidem [Ambien] 10 mg PO HS PRN 11/12/17 03/23/19 Carboxymethylcellulose Sodium 1 drop BOTH EYES DAILY PRN 05/07/18 03/23/19 [Refresh Tears] Furosemide [Lasix] 20 mg PO DAILY 12/11/18 03/23/19 Potassium Chloride ER [K-Dur 10] 10 meq PO BID 12/11/18 03/23/19 Allergies Allergy/AdvReac Type Severity Reaction Status Date / Time gabapentin [From Neurontin] Allergy Swelling Verified 03/23/19 17:50 Iodinated Contrast Media Allergy Rash/Hives Verified 03/23/19 17:50 [Iodinated Contrast Media - IV Dye] Penicillins Allergy Rash/Hives Verified 03/23/19 17:50 sulfamethoxazole Allergy Rash/Hives Verified 03/23/19 17:50 [From Bactrim] trimethoprim [From Bactrim] Allergy Rash/Hives Verified 03/23/19 17:50 walnut Allergy Anaphylaxis Verified 03/23/19 17:50 Review of Systems ROS Statement: Those systems with pertinent positive or pertinent negative responses have been documented in the HPI. ROS Other: All systems not noted in ROS Statement are negative. Past Medical History Past Medical History: Diabetes Mellitus, Fibromyalgia Additional Past Medical History / Comment(s): glaucoma, TMJ, anemia, restless leg syndrome History of Any Multi-Drug Resistant Organisms: None Reported Past Surgical History: Section, Hernia Repair Additional Past Surgical History / Comment(s): peripheral iridotomy eye sx, c section x2 Past Anesthesia/Blood Transfusion Reactions: No Reported Reaction Past Psychological History: No Psychological Hx Reported Smoking Status: Current every day smoker Past Alcohol Use History: None Reported Past Drug Use History: None Reported - Past Family History Mother Family Medical History: Cancer Additional Family Medical History / Comment(s): breast and uterine cancer recently Father Family Medical History: Myocardial Infarction ([place]) Additional Family Medical History / Comment(s): Heart problems General Exam - General Exam Comments Initial Comments: Constitutional: NAD, AOX3, Pt has pleasant affect. HEENT: NC/AT, trachea midline, neck supple, no lymphadenopathy. Posterior pharynx non erythematous, without exudates. External ears appear normal, without discharge. Mucous membranes moist. Eyes PERRLA, EOM intact. There is no scleral icterus. No pallor noted. Cardiopulmonary: RRR, no murmurs, rubs or gallops, no JVD noted. Lungs CTAB in anterior and posterior zaidi. No peripheral edema. Abdominal exam: Abdomen soft and non-distended. Abdomen non-tender to palpation in all 4 quadrants. Bowel sounds active in LLQ. No hepatosplenomegaly. No ecchymosis Neuro: CN II-XII grossly intact. No nuchal rigidity. No raccon eyes, no stanton sign, no hemotympanum. No cervical spinal tenderness. MSK: Proximal tibia-fibula mildly tender to palpation. Flexion range of motion of knee. Laboratory had difficulty. Mild amount of posterior calf and medial thigh tenderness. No posterior calf tenderness bilaterally, homans sign negati ve bilaterally. Posterior tibialis and radial pulse +2 bilaterally. Sensation intact in upper and lower extremities. Full active ROM in upper and lower extremities, 5/5 stregnth. Limitations: physical limitation Course Vital Signs 03/23/19 03/23/19 17:29 20:05 Temperature 98.0 F 97.9 F Pulse Rate 69 65 Respiratory 18 18 Rate Blood Pressure 148/69 153/70 O2 Sat by Pulse 99 99 Oximetry Medical Decision Making - Medical Decision Making Patient proceeded chief complaint of left lower extremity tibia/fibular pain ulnar knee pain after a near fall. Patient able to without difficulty. Patient wasn't stable afebrile. Physical exam displayed mild amount approximately 2 fibular tenderness. Patient also has a mild pain in her posterior calf and medial thigh region. This did occur after the near fall. Plain films on slit acute process. Patient able to without difficulty. Patient likely has muscle skeletal strain causing this discomfort. Patient will be discharged with follow-up with primary care provider. Will follow up with orthopedic consult symptoms persist. Case discussed with Dr. Leong. Disposition Clinical Impression: Musculoskeletal pain Disposition: HOME SELF-CARE Condition: Stable Instructions (If sedation given, give patient instructions): Musculoskeletal Pain (ED) Additional Instructions: Follow up with primary care provider tomorrow. Follow up with orthopedic consult if symptoms persist. Return to ER if condition worsens in anyway. Is patient prescribed a controlled substance at d/c from ED?: No Referrals: Lei Tony DO [Primary Care Provider] - 1-2 days Umesh Torres MD [STAFF PHYSICIAN] - 1-2 days
[2019-03-23 20:49] VITALS: BP 153/70; PULSE 65; TEMP 97.9
== END 2019-03-23 20:05 | disposition home or self-care (01) ==
LOC: EC 16:30
DX: M25.562 Pain in left knee (principal); F17.200 Nicotine dependence, unspecified, uncomplicated; Z79.82 Long term (current) use of aspirin; Z79.890 Hormone replacement therapy; Z79.899 Other long term (current) drug therapy; Z88.0 Allergy status to penicillin; Z88.1 Allergy status to other antibiotic agents; Z88.2 Allergy status to sulfonamides; Z91.041 Radiographic dye allergy status; Z88.8 Allergy status to other drugs, medicaments and biological substances
CPT/HCPCS: 99284